=== PATIENT | female | born 1965 | race Caucasian/White ===

== ENCOUNTER 2023-12-03 13:45 | Outpatient (OUT) | payer BC, SELFPAY | END 2023-12-03 13:46 | disposition home or self-care (01) | LOC: PST 13:45 | PROVIDERS: Visit Provider Surgery | DX: Z01.818 Encounter for other preprocedural examination (principal) ==

== ENCOUNTER 2023-12-11 06:27 | Day surgery (SDC) | payer BC, SELFPAY ==
--- OUTSIDE RECORDS SUMMARY | 2023-12-11 06:31 | XMS_ITS | CCD ---
Author Organization [facility] ion Partnership [facility] Care Team Providers Care Massotherapist Name Role Phone Artem Sifuentes Primary Care Provider Jevon Yepez DO Primary Care Provider Jevon Yepez DO Primary Care Provider Jevon Yepez DO Primary Care Provider [phone] DO Jevon Yepez Jhoan Primary Care Unava Yaya Norman MD Attending Unavailab Yaya Gonzales MD Attending Unavailab johnnie Sifuentes, AZUL Braswell Referring Unavailab DO Jevon Rust Jhoan Primary Care Unava ilyoni Yepez DO [facility] Unava ilyoni Valencia MD, Yaya Leos Attending Unavailab Jevon Rust DO Primary Care Provider JEVON YEPEZ Primary Care Unavailable KAROL COLEMAN Referring Unavailable KAROL COLEMAN Referring Unavailable JEVON YEPEZ Primary Care Unavailable Jevon Yepez DO Primary Care Provider Karol Coleman NP Unavailable KAROL COLEMAN Attending Unavailable KAROL COLEMAN Attending Unavailable KAROL COLEMAN Attending Unavailable ARTEM SIFUENTES Attending Unavailable STEPHANIE DEANDRA A Attending Unavailable PETATA DEANDRA A Attending Unavailable KHALIDA BARBER Attending Unavailable PETATA DEANDRA A Attending Unavailable ARTEM SIFUENTES Attending Unavailable EDIE SILVA Attending Unavailable ARTEM SIFUENTES Referring Unavailable Allergies Allergy Classification Reported Allergen(s) Allergy Type Date of Onset Reaction(s) Facility (3 sources) Alprazolam Propensity to adverse reactions 10-30-201 7 Anxiety [facility] Work Phone: (3 sources) linezolid Drug Allergy 3 Hives [facility] (3 sources) Pollen Propensity to adverse reactions 4 [facility] (3 sources) Quinolones (Antibiotic) Drug Intolerance 7 Hives [facility] Medications Current Medications Medication Drug Class(es) Dates Sig (Normalized) Sig (Original) [id number] 200 actuat albuterol 0.09 mg/actuat metered dose inhaler (3 sources) beta2-Adrenergic Agonist Start: 02-20-2023 take 1-2 puff(s) by inhalation every four to six hours as needed for cough albuterol HFA 90 mcg/act inhaler Indications: Bronchitis with bronchospasm 1-2 puffs every 4-6 hours as needed for cough/wheezing 18 g 1 02/20/2023 Active albuterol 0.833 mg/ml / ipratropium bromide 0.167 mg/ml inhalation solution (3 sources) Anticholinergic, beta2-Adrenergic Agonist Start: 03-09-2023 ipratropium-albute rol (Duo-Neb) 0.5-2.5 mg/3 mL nebulizer solution Indications: Bronchitis with bronchospasm Take 3 mL by nebulization every 6 (six) hours 360 mL 0 03/09/2023 Active amoxicillin 875 mg / clavulanate 125 mg oral tablet (2 sources) Penicillin-class Antibacterial Start: 04-09-2023 End: 04-16-2023 take 1 tablet by mouth in the morning amoxicillin-clavul anate (Augmentin) 875-125 MG tablet Indications: Bronchitis Take 1 tablet (875 mg) by mouth in the morning and 1 tablet (875 mg) before bedtime. Do all this for 7 days. 14 tablet 0 04/09/2023 04/16/2023 Active ascorbic acid 60 mg / beta carotene 5000 unt / copper sulfate 40 mg / dl-alpha tocopheryl acetate 30 unt / sodium selenite 0.04 mg / zinc oxide 40 mg oral tablet (3 sources) Vitamin C Multiple Vitamin (Multivitamin Adult) tablet as directed Orally 0 Active fluticasone propionate 0.05 mg/actuat metered dose nasal spray (20 sources) Corticosteroid fluticasone (Flonase) 50 MCG/ACT nasal spray 1 (one) time each day at the same time. 0 Active fluticasone (HUSSAIN NASE) 50 MCG/ACT nasal spray 1 spray by Nasal route daily 0 Active 100 ml levoFLOXacin 5 mg/ml injection (17 sources) Quinolone Antimicrobial take 750 mg intravenously every twenty-four hours levofloxacin (LEVAQUIN) 500 MG/100ML SOLN Infuse 750 mg intravenously every 24 hours X 28 days 0 Active levothyroxine sodium 0.075 mg oral tablet (20 sources) l-Thyroxine take 1 tablet by mouth in the morning levothyroxine (Synthroid, Levoxyl) 75 MCG tablet Take 1 tablet by mouth in the morning. 0 Active linezolid 600 mg oral tablet (17 sources) Oxazolidinone Antibacterial take 1 tablet by mouth twice daily linezolid (ZYVOX) 600 MG tablet Take 600 mg by mouth 2 times daily X 28 days 0 Active loratadine 10 mg oral tablet (20 sources) take 1 tablet by mouth in the morning loratadine (Claritin) 10 MG tablet Take 10 mg by mouth in the morning. 0 Active methylPREDNISolone 4 mg oral tablet (2 sources) Corticosteroid Star t: 03-29 24 methylPREDNISolone (Medrol) 4 MG tablet Indications: Bronchitis 1 MEDROL DOSE TWAN 1 tablet 0 04/09/2023 Active Start: 04-09-2023 methylPREDNISo lone (Medrol) 4 MG tablet Indications: Bronchitis 1 MEDROL DOSE TWAN 1 tablet 0 04/09/2023 Active rivaroxaban 15 mg oral tablet (17 sources) Factor Xa Inhibitor take 1 tablet by mouth twice daily rivaroxaban (XARELTO) 15 MG TABS tablet Take 15 mg by mouth 2 times daily 0 Active sertraline 50 mg oral tablet (3 sources) Serotonin Reuptake Inhibitor Start: 3 take 1 tablet by mouth in the morning sertraline (Zoloft) 50 MG tablet Indications: Anxiety Take 1 tablet (50 mg) by mouth in the morning. 100 tablet 3 10/27/2022 Active simvastatin 20 mg oral tablet (3 sources) HMG-CoA Reductase Inhibitor Start: 3 simvastatin (Zocor) 20 MG tablet Indications: Mixed hyperlipidemia (CMS/HCC) TAKE 1 TABLET DAILY IN THE EVENING 100 tablet 3 10/23/2022 Active Completed/Discontinued Medications Medication Drug Class(es) Dates Sig (Normalized) Sig (Original) iopamidol (ISOVUE-370) 76 % injection 75 mL (1 source) Start: 12-22-2021 End: 12-22-2021 iopamidol (ISOVUE-370) 76 % injection 75 mL technetium sestamibi (CARDIOLITE) injection 30 millicurie (2 sources) Start: 09-07-2020 End: 09-07-2020 technetium sestamibi (CARDIOLITE) injection 30 millicurie Start: 09-06-2020 End: 09-06-2020 technetium sestamibi (CARDIO LITE) injection 30 millicurie Problems Active Problems Problem Classification Problem Date Documented Da te Episodic/Chronic Acute bronchitis (3 sources) Acute bronchitis, unspecified; Translations: [Acute bronchitis, unspecified] Onset: 03-09-2023 Episodic Allergic reactions (3 sources) Flexural atopic dermatitis; Translations: [Other atopic dermatitis] Onset: 10-27-2022 10-27-2022 Chronic Anxiety disorders (3 sources) Mixed anxiety and depressive disorder; Translations: [Other specified anxiety disorders] Onset: 10-27-2022 10-27-2022 Chronic Cardiac dysrhythmias (3 sources) Palpitations; Translations: [Palpitations] Episodic Chronic obstructive pulmonary disease and bronchiectasis (2 sources) Bronchitis; Translations: [Bronchitis, not specified as acute or chronic] 04-09-2023 Episodic Disorders of lipid metabolism (6 sources) Dyslipidemia; Translations: [Hyperlipidemia, unspecified] Onset: 10-27-2022 10-27-2022 Chronic Melanomas of skin (6 sources) Malignant melanoma of skin of trunk; Translations: [Malignant melanoma of other part of trunk] Onset: 08-15-2013 10-27-2022 Chronic Nonspecific chest pain (4 sources) Chest pain; Translations: [Chest pain, unspecified] Episodic Nutritional deficiencies (3 sources) Vitamin D deficiency; Translations: [Vitamin D deficiency, unspecified] Onset: 10-27-2022 10-27-2022 Chronic Osteoarthritis (3 sources) Primary osteoarthritis, right shoulder; Translations: [Arthropathy, unspecified, shoulder region] Onset: 10-27-2022 10-27-2022 Chronic Other ear and sense organ disorders (3 sources) Decreased hearing ; Translations: [Unspecified hearing loss, bilateral] Onset: 10-27-2022 10-27-2022 Chronic Other ear and sense organ disorders (3 sources) Otitis externa; Translations: [Unspecified otitis externa, bilateral] Onset: 10-27-2022 10-27-2022 Chronic Other ear and sense organ disorders (3 sources) Malignant otitis externa; Translations: [Malignant otitis externa, unspecified ear] Onset: 10-27-2022 10-27-2022 Chronic Other infections; including parasitic (1 source) Post-viral disorder; Translations: [[id number] condition] Chronic Other liver diseases (3 sources) Steatosis of liver; Translations: [Fatty (change of) liver, not elsewhere classified] Onset: 10-27-2022 10-27-2022 Chronic Other lower respiratory disease (4 sources) Dyspnea on exertion; Translations: [Dyspnea, unspecified] Episodic Other lower respiratory disease (1 source) Dyspnea; Translations: [Shortness of breath] Episodic Other nervous system disorders (3 sources) Chronic pain; Translations: [Other chronic pain] Onset: 10-27-2022 10-27-2022 Chronic Other non-traumatic joint disorders (3 sources) Loose body in joint of right shoulder region; Translations: [Loose body in right shoulder] Onset: 10-27-2022 10-27-2022 Chronic Other upper respiratory disease (3 sources) Allergic disposition; Translations: [Other allergic rhinitis] Onset: 10-27-2022 10-27-2022 Chronic Other upper respiratory infections (3 sources) Chronic frontal sinusitis; Translations: [Chronic frontal sinusitis] Onset: 10-27-2022 10-27-2022 Chronic Otitis media and related conditions (20 sources) Chronic mastoiditis; Translations: [Chronic mastoiditis, right ear] Onset: 11-29-2016 11-29-2016 Chronic Thyroid disorders (9 sources) Acquired hypothyroidism; Translations: [Hypothyroidism, unspecified] Onset: 05-07-2012 10-27-2022 Chronic Unclassified (1 source) Patient encounter status; Translations: [Breast cancer screening] Past or Other Problems Problem Classification Problem Date Documented Da te Episodic/Chronic Bacterial infection; unspecified site (6 sources) Methicillin resistant Staphylococcus aureus infection; Translations: [Methicillin resistant Staphylococcus aureus infection, unspecified site] Onset: 10-27-2022 10-27-2022 Episodic Benign neoplasm of uterus (3 sources) Uterine leiomyoma; Translations: [Leiomyoma of uterus, unspecified] Onset: 10-27-2022 10-27-2022 Episodic Complications of surgical procedures or medical care (3 sources) Dehiscence of surgical wound; Translations: [Disruption of external operation (surgical) wound, not elsewhere classified, initial encounter] Onset: 08-15-2013 10-27-2022 Episodic Immunizations and screening for infectious disease (3 sources) Culture positive for methicillin resistant Staphylococcus aureus; Translations: [Carrier or suspected carrier of Methicillin resistant Staphylococcus aureus] Onset: 10-27-2022 10-27-2022 Episodic Other and unspecified benign neoplasm (3 sources) Benign neoplasm of thyroid gland; Translations: [Benign neoplasm of thyroid gland] Onset: 10-27-2022 10-27-2022 Episodic Other and unspecified benign neoplasm (3 sources) Tubular adenoma of colon; Translations: [Benign neoplasm of colon, unspecified] Onset: 10-27-2022 10-27-2022 Episodic Other connective tissue disease (3 sources) Impingement syndrome of right shoulder region; Translations: [Impingement syndrome of right shoulder] Onset: 10-27-2022 10-27-2022 Episodic Other ear and sense organ disorders (3 sources) Bilateral tinnitus; Translations: [Tinnitus, bilateral] Onset: 10-27-2022 10-27-2022 Episodic Other gastrointestinal disorders (3 sources) Esophageal dysphagia; Translations: [Other dysphagia] Onset: 10-27-2022 10-27-2022 Episodic Other screening for suspected conditions (not mental disorders or infectious disease) (10 sources) Mammography abnormal; Translations: [Other abnormal and inconclusive findings on diagnostic imaging of breast] Onset: 10-27-2022 Episodic Other upper respiratory disease (3 sources) Hoarse; Translations: [Dysphonia] Onset: 10-27-2022 10-27-2022 Episodic Phlebitis; thrombophlebitis and thromboembolism (9 sources) Acute deep venous thrombosis of right axillary vein; Translations: [Acute embolism and thrombosis of right axillary vein] Onset: 12-05-2016 10-27-2022 Episodic Viral infection (3 sources) Disease caused by 2019-nCoV; Translations: [COVID-19] Onset: 07-26-2022 07-26-2022 Episodic Results Test Name Value Interpretation Reference Range Facility BI MAMMOGRAM SCREENING TOMPOWER SILVERIO BILATERALon 12-05-2023 BI MAMMOGRAM SCREENING TOMOSYNTHESIS BILATERAL This is a summary report. The complete report is available in the patient's medical record. If you cannot access the medical record, please contact the sending organization for a detailed fax or copy. Examination: BI MAMMOGRAM SCREENING TOMOSYNTHESIS BILATERAL Clinical History: screen Technique: Screening digital mammography study of both breasts was performed with 2-D and 3-D tomosynthesis imaging. Study was compared to the screening mammogram study of the breasts dated 08/24/2021 as well as diagnostic mammogram study of the right breast dated 09/26/2021. Findings: There is no evidence of interval dominant spiculated mass, grouped microcalcifications, or skin thickening which would be suggestive of malignancy. Architectural distortion on the right appears similar to the 08/24/2021 study likely related to fibrosis possibly postprocedural in nature, correlate with history. Scattered benign-appearing calcifications are seen on the left, a few benign-appearing calcifications are seen on the right. Axillary lymph nodes are noted bilaterally. IMPRESSION: Impression: No specific evidence of malignancy seen in either breast. Breast Density: The breasts are heterogeneously dense, which may obscure small masses BiRads: BIRADS 2 - Benign Recommended follow-up: Routine Screening Mamm ELECTRONICALLY SIGNED BY: Jamar Ott M.D. Normal Not Available XR CHEST (2 VW)on 03-09-2023 XR CHEST (2 VW) EXAMINATION: TWO XRAY VIEWS OF THE CHEST 03/09/2023 2:28 pm COMPARISON: August 23, 2020 HISTORY: ORDERING SYSTEM PROVIDED HISTORY: Bronchitis with bronchospasm FINDINGS: The lungs are without acute focal process. There is no effusion or pneumothorax. The cardiomediastinal silhouette is without acute process. The osseous structures are without acute process. IMPRESSION: No acute process. Interpreted by: Allison Eugene MD Signed by: Allison Eugene MD 03/09/23 Final result Normal [facility] I-4-IR-[facility]2022 [facility]dL Normal 100 - 190 [facility] Comment on above: Result Comment: Test Performed by: [facility] [address] [place] [address] Manager Express: Daniel Balderas M.D. Ph.D.; CLIA# [id number] Performed By: #### C [id number] #### [facility] [address] [place] [address], [place] [address] AMA M2-[facility] 02-22-2022 AMA Ab Screen-[place] <0.1 Normal <0.1 (Negative) [facility] Comment on above: Result Comment: Test Performed by: [facility] [address] [place] [id number] Manager Express: Daniel Balderas M.D. Ph.D.; CLIA# [id number] Performed By: #### M itochondrial Antibody, M2-[place] #### [facility] [address] [place] [id number] ANTHONY Vds-2-Ijefps 02-22-2022 ANTHONY Cytoplasmic Pattern-[place] Not Reported Normal [facility] Comment on above: Performed By: #### C [id number] #### [address] [address] ANTHONY Lab Comment-[place] Not Reported Normal [facility] Comment on above: Performed By: #### C [id number] #### [address] [place] [address] ANTHONY Pattern (2)-[place] Not Reported Normal [facility] Comment on above: Performed By: #### C [id number] #### [address] [address] ANTHONY Pattern-[place] Not Reported Normal [facility] Comment on above: Performed By: #### C [id number] #### [address] [address] ANTHONY Titer (2)-[place] Not Reported Normal [facility] Comment on above: Performed By: #### C [id number] #### [address] [address] ANTHONY Titer-[place] Not Reported Normal [facility] Comment on above: Performed By: #### Андрей [id number] #### [address] [address] HEp-2 ANTHONY-[place] SEE BELOW Normal <1:80 (Negative) [facility] Comment on above: Result Comment: RESU LT: <1:80 (Negative) ADDITIONAL INFORMATION Method: Immunofluorescence using HEp-2 cellular substrate. Test Performed by: [facility] [place] [address] Manager [employer]: Daniel Balderas M.D. Ph.D.; CLIA# [id number] Performed By: #### Андрей [id number] #### [address] [address] Cerulo Lvl-[facility] 02-22-2022 Ceruloplasmin-[place] 28.0 mg/dL Normal 20.0 - 51.0 [facility] Comment on above: Result Comment: Test Performed by: [facility] [address] [place] [address] Manager Express: Daniel Balderas M.D. Ph.D.; CLIA# [id number] Performed By: #### Андрей [id number] #### [address] [address] SM Ab-[facility] 02-22-2022 SMA Screen-[place] Negative Normal Negative [facility] Comment on above: Result Comment: Nega tive: No further testing will be performed ADDITIONAL INFORMATION This test was developed and its performance characteristics determined by [facility] in a manner consistent with CLIA requirements. This test has not been cleared or approved by the U.S. Food and Drug Administration. Test Performed by: [facility] [place] [address] Manager [employer]: Daniel Balderas M.D. Ph.D.; CLIA# [id number] Performed By: #### S darvin Muscle Antibody-[place] #### [facility] [address] [place] [address] TTG IgA-[facility] 02-22-2022 TTG IgA-[place] <1.2 Normal <4.0 (Negative) [facility] Comment on above: Result Comment: Test Performed by: [facility] [address] [place] [address] Manager [employer]: Daniel Balderas M.D. Ph.D.; CLIA# [id number] Performed By: #### T [facility] #### [place] [address] US Liver + Elastography US Liver + Elastography EXAM: ULTRASOUND LIVER ELASTOGRAPHY HISTORY: Cirrhosis, liver TECHNIQUE: Transabdominal ultrasound was performed of the right upper quadrant. Ultrasound elastography of the liver was also performed as per departmental protocol. COMPARISON: None FINDINGS: Gallbladder is surgically absent. The proximal common bile duct measures 3 mm in diameter. There is no intrahepatic bile duct dilatation. Liver measures 18.1 cm, and with mildly increased echogenicity throughout. Dedicated elastography protocol for liver stiffness demonstrates liver EQI average of 5.68 kPA with median of 5.70 kPA. The visualized head and body of the pancreas are normal. Portions of the pancreas are obscured by overlying bowel gas. The right kidney is without hydronephrosis. There is no free fluid in the right upper quadrant. IMPRESSION: 1. Mild hepatomegaly with fatty infiltration of the liver. Liver stiffness evaluated by elastography and demonstrates liver EQI average of 5.68 kPA, suggestive of periportal fibrotic expansion, Metavir F1. In the absence of other known clinical signs, need to rule out compensated advanced chronic liver disease (cACLD). See reference below. 2. Cholecystectomy with normal caliber proximal common bile duct at 3 mm. 3. Right kidney without hydronephrosis. Remarks: Liver stiffness evaluation: A measured stiffness of < or = 5.0 kPa : High probability of being normal. No fibrosis, Metavir F0. < 7 kPa : In the absence of other known clinical signs (e.g., jaundice, ascites, etc.), need to rule out compensated advanced chronic liver disease (cACLD). Periportal fibrotic expansion, Metavir F1. 7- 9.5 kPa : Suggestive of compensated advanced chronic liver disease (cACLD) and further tests needed for confirmation. Rare periportal septae or bridges, Metavir F2. 9.5 - 12.5 kPa : Consistent with compensated advanced chronic liver disease (cACLD). Numerous portal-central septae or bridges, Metavir F3. 12.5 - 17 kPa : Consistent with compensated advanced chronic liver disease (cACLD). Cirrhosis, Metavir F4. > 17 kPa : Consistent with compensated advanced chronic liver disease (cACLD), cirrhosis, Metavir F4, and suggestive of clinically significant portal hypertension (CSPH). Final Dictated by: Alaina Chew MD Dictated DT/TM: 02/22/2022 10:04 am Signed by: Alaina Chew MD Signed (Electronic Signature): 02/22/2022 10:05 am (If Report Is Signed, Electronically Signed in Other Vendor System) Normal [facility] Vitamin D 25-Hydroxy Totalon 02-22-2022 Vitamin D 25-Hydroxy Total 25 ng/mL Low 30-100 [facility] Comment on above: Result Comment: Maye min D 25-Hydroxy Total Reference Range: Deficient: < 20 Insufficient: 20 to < 30 Sufficient: 30 - 100 Upper Safety Limit: > 100 Performed By: #### C [id number] #### [place] [address] .eGFRon 02-21-2022 GFR/1.73 sq M.predicted MDRD (S/P/Bld) [Vol rate/Area] mL/min/{1.73_m2} Normal >=60 [facility] Comment on above: Result Comment: [facility] have implemented the eGFR calculation approach that does not have a coefficient for race and that conforms to the NKF-ASN Task Force Recommendations. Stages of Chronic Kidney Disease GFR Stage 3a Mild to moderate loss of kidney function 59 to 45 Stage 3b Moderate to severe loss of kidney function 44 to 33 Stage 4 Severe loss of kidney function 29 to 15 Stage 5 Kidney failure Less than 15 GFR calculated using the CKD-Epi Creatinine Equation (2020): eGFR = 142 X min(SCr/?, 1)? X max(SCr /?, 1)-1.200 X 0.9938Age X 1.012 [if female] Abbreviations/Units: eGFR (estimated glomerular filtration rate) = mL/min/1.73 m2 SCr (standardized serum creatinine) = mg/dL ? = 0.7 (females) or 0.9 (males) ? = -0.241 (females) or -0.302 (males) min = indicates the minimum of SCr/? or 1 max = indicates the maximum of SCr/? or 1 Age = years Performed By: #### C [id number] #### [address] [address] AFP Tumor Marker,Serumon AFP Tumor Marker, Serum 2.7 ng/mL Normal <=8.3 [facility] Comment on above: Result Comment: Refe rence values are for non- subjects only; production of alpha-fetoprotein elevates values in women. In this Kathi Krystian assay AFP concentrations are <8.4 ng/mL for 99% of a normal population consisting of non- healthy individuals, without known liver disease, hepatocellular carcinoma, or germ-cell tumors. The persistence of alpha-fetoprotein , an uncommon hereditary trait may cause elevations of AFP above the reference interval. In some immunoassays, the presence of unusually high concentrations of analyte may result in a high-dose hook effect. This may result in a lower or even normal measured analyte concentration. If the reported result is inconsistent with the clinical presentation, the laboratory should be alerted for troubleshooting. For diagnostic purposes, these immunoassay results should always be assessed in conjunction with the patient?s medical history, clinical examination and other findings. The testing method is an immunoenzymatic assay manufactured by [employer]. and is tested on the [employer] DxI 600. Values obtained with different assay methods or kits may be different and cannot be used interchangeably. Test results cannot be interpreted as absolute evidence of the presence or absence of malignant disease. Alpha-Fetoprotein values are not interpretable in females for the investigation of malignant disease. Performed By: #### C [id number] #### [address] [address] CBC w/ Diffon 02-21-2022 Erythrocyte distribution width (RBC) [Ratio] 13.7 % Normal 11.6-14.8 [facility] Comment on above: Performed By: #### C [id number] #### [address] [address] Hematocrit (Bld) [Volume fraction] 41.6 % Normal 36.0-46.0 [facility] Comment on above: Performed By: #### C [id number] #### [address] [address] Hemoglobin (Bld) [Mass/Vol] 14.0 g/dL Normal 12.0-16.0 [facility] Comment on above: Performed By: #### C [id number] #### [address] [address] MCH (RBC) [Entitic mass] 29.7 pg Normal 27.0-35.0 [facility] Comment on above: Performed By: #### C [id number] #### [address] [address] MCHC 33.7 % Normal 31.0-37.0 [facility] Comment on above: Performed By: #### C [id number] #### [address] [address] MCV (RBC) [Entitic vol] 88.0 fL Normal 80.0-100.0 [facility] Comment on above: Performed By: #### C [id number] #### [address] [address] Platelet 318 x10*3/mcL Normal 150-350 [facility] Comment on above: Performed By: #### C [id number] #### [address] [address] [address] Platelet mean volume (Bld) [Entitic vol] 7.8 fL Normal 6.7-10.6 [facility] Comment on above: Performed By: #### C [id number] #### [facility] [address] [place] [address] RBC 4.73 x10*6/mcL Normal 3.80-5.20 [facility] Comment on above: Performed By: #### C [id number] #### [facility] [address] [place] [address] WBC 5.7 x10*3/mcL Normal 4.5-11.0 [facility] Comment on above: Performed By: #### C [id number] #### [address] [address] CMPon 02-21-2022 Albumin [Mass/Vol] 4.0 g/dL Normal 3.2-4.9 [facility] Comment on above: Performed By: #### T IBC #### [address] [address] Albumin/Globulin [Mass ratio] 1.2 {ratio} Normal 1.1-2.2 [facility] Comment on above: Performed By: #### T IBC #### [address] [address] Alk Phos 62 IU/L Normal 32-91 [facility] Comment on above: Performed By: #### T IBC #### [address] [address] ALT [Catalytic activity/Vol] 32 U/L Normal 14-54 [facility] Comment on above: Performed By: #### T IBC #### [address] [place] [address] Anion gap [Moles/Vol] 12 mmol/L Normal 7-17 [facility] Comment on above: Performed By: #### T IBC #### [address] [address] AST [Catalytic activity/Vol] 27 U/L Normal 15-41 [facility] Comment on above: Performed By: #### T IBC #### [address] [address] Bili Total 0.4 mg/dL Normal 0.3-1.2 [facility] Comment on above: Performed By: #### T IBC #### [address] [address] Calcium [Mass/Vol] 8.7 mg/dL Normal 8.5-10.3 [facility] Comment on above: Performed By: #### T IBC #### [address] [address] Chloride [Moles/Vol] 103 mmol/L Normal 98-110 [facility] Comment on above: Performed By: #### T IBC #### [address] [address] CO2 [Moles/Vol] 27 mmol/L Normal 22-32 [facility] Comment on above: Performed By: #### T IBC #### [address] [address] Creatinine [Mass/Vol] 0.97 mg/dL Normal 0.44-1.03 [facility] Comment on above: Performed By: #### T IBC #### [address] [address] Glucose [Mass/Vol] 95 mg/dL Normal 70-99 [facility] Comment on above: Performed By: #### T IBC #### [address] [address] Potassium [Moles/Vol] 4.0 mmol/L Normal 3.4-4.8 [facility] Comment on above: Performed By: #### T IBC #### [address] [address] Protein [Mass/Vol] 7.3 g/dL Normal 6.5-8.1 [facility] Comment on above: Performed By: #### T IBC #### [address] [address] Sodium [Moles/Vol] 138 mmol/L Normal 133-142 [facility] Comment on above: Performed By: #### T IBC #### [address] [address] Urea nitrogen [Mass/Vol] 19 mg/dL Normal 8-26 [facility] Comment on above: Performed By: #### T IBC #### [address] [address] Urea nitrogen/Creatinine [Mass ratio] 19.6 mg/mg Normal 10.0-20.0 [facility] Comment on above: Performed By: #### T IBC #### [address] [address] Diff Autoon 02-21-2022 Baso Absolute 0.0 x10*3/mcL Normal 0.0-0.2 [facility] Comment on above: Performed By: #### . Automated Diff #### [address] [address] Basophils/100 WBC (Bld) 0.7 % Normal 0.0-1.5 [facility] Comment on above: Performed By: #### . Automated Diff #### [address] [address] Eos Absolute 0.2 x10*3/mcL Normal 0.0-0.4 [facility] Comment on above: Performed By: #### . Automated Diff #### [address] [address] Eosinophils/100 WBC (Bld) 4.2 % Normal 0.0-5.4 [facility] Comment on above: Performed By: #### . Automated Diff #### [address] [address] Lymph Absolute 1.8 x10*3/mcL Normal 1.0-4.8 [facility] Comment on above: Performed By: #### . Automated Diff #### [address] [address] Lymphocytes/100 WBC (Bld) 32.4 % Normal 27.2-40.8 [facility] Comment on above: Performed By: #### . Automated Diff #### [address] [address] [place] Absolute 0.3 x10*3/mcL Normal 0.1-1.1 [facility] Comment on above: Performed By: #### . Automated Diff #### [address] [address] Monocytes/100 WBC (Bld) 5.7 % Normal 3.7-11.9 [facility] Comment on above: Performed By: #### . Automated Diff #### [address] [address] Neutro Absolute 3.2 x10*3/mcL Normal 1.8-7.7 [facility] Comment on above: Performed By: #### . Automated Diff #### [address] [address] Neutro Auto 57.0 % Normal 47.2-70.8 [facility] Comment on above: Performed By: #### . Automated Diff #### [address] [address] Ferritinon 02-21-2022 Ferritin Lvl 41.5 ng/mL Normal 11.0-306.8 [facility] Comment on above: Performed By: #### F ERR #### [address] [address] HAV Tot Abon 02-21-2022 Hep A Total Ab 1.59 Normal [facility] Comment on above: Performed By: #### T IBC #### [address] [address] Hep A Total Ab Interp Negative Normal Negative [facility] Comment on above: Result Comment: Samp le is negative for anti-HAV. Indicates that the individual has not been infected and is presumed not to be immune to HAV infection. Performed By: #### T IBC #### [address] [address] Hep Bc Totl Abon 02-21-2022 Hep B Core Total Ab 3.22 Normal [facility] Comment on above: Performed By: #### T IBC #### [address] [address] Hep B Core Total Ab Interp Negative Normal Negative [facility] Comment on above: Result Comment: A ne gative test result does not exclude the possibility of exposure to hepatitis B virus. Levels of anti-HBc may be undetectable both in early infection and late after infection. Results obtained with the VITROS Anti-HBc test may not be used interchangeably with values obtained with different manufacturers? test methods. The magnitude of a VITROS Anti-HBc test result cannot be correlated to an endpoint titer. Performed By: #### T IBC #### [address] [address] Hep C Ab w/reflex HCV RNA Qn t, PCRon 02-21-2022 Hep C IgG Interp Negative Normal Negative [facility] Comment on above: Performed By: #### H CV #### [address] [address] HepB Profileon 02-21-2022 Hep B Core IgM 0.04 Normal [facility] Comment on above: Performed By: #### C [id number] #### [address] [address] Hep B Core IgM Interp Negative Normal Negative [facility] Comment on above: Performed By: #### C [id number] #### [address] [address] Hep B Surface Antibody Interp Positive Normal [facility] Comment on above: Result Comment: Sarah ent is considered to be immune to infection with HBV. Performed By: #### C [id number] #### [address] [address] Hep Bs Ab 104.0 mIU/mL Normal [facility] Comment on above: Performed By: #### C [id number] #### [address] [address] Hep Bs Ag Interp Negative Normal Negative [facility] Comment on above: Performed By: #### C [id number] #### [address] [address] Hgb A1con 02-21-2022 Glucose [Mass/Vol] 123 mg/dL High 68-114 [facility] Comment on above: Result Comment: Math ematical Calc approx. The mean gluc equivalency of A1c Performed By: #### C [id number] #### [address] [address] Hgb A1c 5.9 % A1c High 4.0-5.6 [facility] Comment on above: Result Comment: Refe rence Range: 4.0 - 5.6 % Normal 5.7 - 6.4 % Pre-Diabetes > 6.5 % Diabetes Performed By: #### C [id number] #### [address] [address] Ig GAMon 02-21-2022 IgA Level 149 mg/dL Normal 66-436 [facility] Comment on above: Performed By: #### G AM #### [address] [address] Performed By: #### I GA #### [address] [address] IgG Level 965 mg/dL Normal 791-1643 [facility] Comment on above: Performed By: #### G AM #### [address] [address] IgM Level 74 mg/dL Normal 43-279 [facility] Comment on above: Performed By: #### G AM #### [address] [address] PTon 02-21-2022 INR Coag (PPP) [Relative time] 0.9 {INR} Normal <=3.5 [facility] Comment on above: Result Comment: INR has no normal range. INR Therapeutic range is: 2.0-3.0 (AF, CVA, TIAs, DVT prophylaxis, acute DVT) 2.5-3.5 (Mech heart valves, recurrent thrombosis/emboli) Performed By: #### T IBC #### [address] [address] PT Coag (PPP) [Time] 9.7 s Normal 8.9-11.8 [facility] Comment on above: Performed By: #### T IBC #### [address] [address] TIBCon 02-21-2022 Iron [Mass/Vol] 94 ug/dL Normal 28-170 [facility] Comment on above: Performed By: #### T IBC #### [address] [address] Iron Sat 24.0 % Normal >=16.0 [facility] Comment on above: Performed By: #### T IBC #### [address] [address] TIBC 391 mcg/dL Normal 261-478 [facility] Comment on above: Performed By: #### T IBC #### [address] [address] Transferrin [Mass/Vol] 279 mg/dL Normal 192-382 [facility] Comment on above: Performed By: #### T IBC #### [address] [address] TSHon 02-21-2022 TSH Qn 1.41 m[IU]/L Normal 0.45-5.33 [facility] Comment on above: Result Comment: Refe rence Ranges for individuals from to 18 years of age were obtained from The Latricia Lyn Handbook (20 ed) published by [facility]. Reference Ranges for Females: Females, 1st Trimester 0.05 ? 3.7 uIU/mL Females, 2nd Trimester 0.31 ? 4.35 uIU/mL Females, 3rd Trimester 0.41 ? 5.18 uIU/mL Performed By: #### C [id number] #### [address] [address] Gastroenterology Office/Clin ic Noteon 02-10-2022 Gastroenterology Office/Clinic Note Chief Complaint Fatty liver History of Present Illness 56-year-old woman referred for evaluation and management of fatty liver. Outside records reviewed. CT of the chest with contrast done on December 22, 2021 for shortness of breath showed severe fatty infiltration of the liver. Liver enzymes checked on December 22, 2021 showed ALT 44, AST 32, total bilirubin 0.4. Clinically denied any hepatic decompensation. Denied alcohol use disorder or illicit drug use. Patient is adopted so she is not sure of her biological family history. No jaundice, abdominal pain, nausea, vomiting or overt GI bleeding. History of supplement use for approximately 1 month?stopped. Review of Systems 10 point review of systems negative except as mentioned in HPI. Physical Exam General: Alert and oriented, well nourished, no acute distress Eye: tracks well, anicteric sclera HENT: Normocephalic, external ear normal, no discharge, moist oral mucosa Neck: Supple, non-tender, trachea midline Lungs: symmetrical expansion, nonlabored respirations Heart: regular rate, distal pulses intact Abdomen: soft, non-tender. Nondistended. Musculoskeletal: no deformity, normal ambulation, no swelling Skin: clean, dry, intact, no jaundice Neurologic: A&Ox3, no focal deficits Psychiatric: Cooperative, appropriate mood and affect Additional Vitals No qualifying data available. Assessment/Plan 1. Fatty liver 2. Abnormal liver enzymes 3. Hyperlipidemia Etiology likely NAFLD. Discussed natural history, pathophysiology, risk factors, complications and management options of fatty liver disease in detail. We will do a comprehensive work-up to rule out secondary causes of fatty liver. Check elastography to assess the burden of fibrosis. I will also get updated labs to assess noninvasive assessment for advanced fibrosis-FIB4 and NAFLD fibrosis score. Low threshold to proceed for a liver biopsy for definitive diagnosis-we will make that determination after completion of above work-up. Confirm immunity against hepatitis A and B-vaccinate if negative. Can be done with PCP over the health department. Recommend low-fat, high-protein diet and regular exercise with a goal of weight loss of 10% over 6 months. Avoid heavy alcohol use, herbal/hormonal supplement use, illicit drug use. Close follow-up with PCP for appropriate screening and optimization and management of metabolic risk factors including diabetes, hypertension, hyperlipidemia, thyroid issues. GI clinic follow-up in 8 weeks Medical Decision Making Chronic conditions NOT treated during this visit that affected my overall medical decision making: No Treatment plans discussed but not opted for at this time: No Prescribed medication that requires intensive monitoring for toxicity: No I have reviewed the patient?s medication list for medication interactions/contrain dications and/or for upcoming procedures: Yes Time Spent with the Patient I have personally spent 60 minutes on this date, directly related to today's patient visit, including pre and post visit work, for this date of service. Time listed does not include time spent on separately billable services. Problem List/Past Medical History Ongoing Abnormal liver enzymes Cataract Fatty liver Hypercholesterolemia - High cholesterol Hyperlipidemia Hypothyroidism Malignant melanoma MRSA - Methicillin-resistant staphylococcus aureus Historical No qualifying data Procedure/Surgical History PARTIAL REMOVAL OF THYROID (03/29/2014) Wide excision of skin lesion (06/27/2015) Anastomosis of gall bladder (03/29/2016) Medications levothyroxine, 75.0 mcg/mg, Oral, Daily sertraline, 50 mg/min, Oral, Daily sertraline, 25 mg/min, Oral, Daily simvastatin, 20 mg/min, Oral, Daily triamcinolone, 2 sprays, Nasal, Daily ZyrTEC, 10 mg/min, Oral, Daily Allergies No active allergies Immunizations Vaccine Date Status measles/mumps/rubella virus vaccine 02/07/2022 Given Comments : Original Free text Vaccine : MMR/ measles, mumps, and rubella virus vaccine SARS-CoV-2 (COVID-19) mRNA-1273 vaccine 02/13/2021 Given Comments : Original Free text Vaccine : SARS-CoV-2 (COVID-19) mRNA-1273 vaccine / Moderna SARS-CoV-2 (COVID-19) mRNA-1273 vaccine 06/07/2020 Given Comments : Original Free text Vaccine : SARS-CoV-2 (COVID-19) mRNA-1273 vaccine / Moderna SARS-CoV-2 (COVID-19) mRNA-1273 vaccine 05/10/2020 Given Comments : Original Free text Vaccine : SARS-CoV-2 (COVID-19) mRNA-1273 vaccine / Moderna Electronically signed by Yaya Valencia MD 02/10/22 08:54 EST We will check ultrasound of the liver with elastography to assess hepatic morphology and burden of fibrosis. Electronically signed by Yaya Valencia MD 02/10/22 08:55 EST Normal [facility] CBCon 12-22-2021 Hematocrit (Bld) [Volume fraction] 45.9 % 36.3 - 47.1 % [facility] Hemoglobin (Bld) [Mass/Vol] 15.0 g/dL 11.9 - 15.1 g/dL [facility] MCH (RBC) [Entitic mass] 29.7 pg 25.2 - 33.5 pg [facility] MCHC (RBC) [Mass/Vol] 32.7 g/dL 28.4 - 34.8 g/dL [facility] MCV (RBC) [Entitic vol] 90.9 fL 82.6 - 102.9 fL [facility] NRBC Automated 0.0 0.0 per 100 WBC [facility] Platelet distribution width (Bld) [Ratio] 12.8 % 11.8 - 14.4 % [facility] Platelet mean volume (Bld) [Entitic vol] 9.3 fL 8.1 - 13.5 fL [facility] Platelets (Bld) [#/Vol] 271 10*3/uL [facility] RBC (Bld) [#/Vol] 5.05 10*6/uL 3.95 - 5.1 1 m/uL [facility] WBC (Bld) [#/Vol] 10.1 10*3/uL [facility] CT CHEST W CONTRASTon 2021 No acute pulmonary parenchymal abnormality. Severe fatty infiltration of the liver. [facility] CONSOLIDATED EXAMINATION: CT OF THE CHEST WITH CONTRAST 12/22/2021 4:42 pm TECHNIQUE: CT of the chest was performed with the administration of intravenous contrast. Multiplanar reformatted images are provided for review. Automated exposure control, iterative reconstruction, and/or weight based adjustment of the mA/kV was utilized to reduce the radiation dose to as low as reasonably achievable. COMPARISON: None. HISTORY: ORDERING SYSTEM PROVIDED HISTORY: Shortness of breath TECHNOLOGIST PROVIDED HISTORY: STAT Creatinine as needed:->No FINDINGS: CT chest: Lines and tubes: None. Lungs and Airways and Pleura: Central airways are patent. No lung consolidation. No pleural effusion. No pneumothorax. Lymph nodes: No pathologically enlarged mediastinal, hilar, lower cervical, or chest wall lymph nodes. Cardiovascular and Mediastinum: No acute aortic pathology. Cardiac chamber sizes appear to measure within normal limits on this non ECG gated study. No pericardial effusion. The thyroid gland is unremarkable. The esophagus is unremarkable. Bones/Soft tissues: No fracture. No definite suspicious lytic or blastic foci. Visualized upper abdomen: Severe fatty infiltration of the liver. [facility] Muriel Aguilar MD - 12/22/2021 EXAMINATION: CT OF THE CHEST WITH CONTRAST 12/22/2021 4:42 pm TECHNIQUE: CT of the chest was performed with the administration of intravenous contrast. Multiplanar reformatted images are provided for review. Automated exposure control, iterative reconstruction, and/or weight based adjustment of the mA/kV was utilized to reduce the radiation dose to as low as reasonably achievable. COMPARISON: None. HISTORY: ORDERING SYSTEM PROVIDED HISTORY: Shortness of breath TECHNOLOGIST PROVIDED HISTORY: STAT Creatinine as needed:->No FINDINGS: CT chest: Lines and tubes: None. Lungs and Airways and Pleura: Central airways are patent. No lung consolidation. No pleural effusion. No pneumothorax. Lymph nodes: No pathologically enlarged mediastinal, hilar, lower cervical, or chest wall lymph nodes. Cardiovascular and Mediastinum: No acute aortic pathology. Cardiac chamber sizes appear to measure within normal limits on this non ECG gated study. No pericardial effusion. The thyroid gland is unremarkable. The esophagus is unremarkable. Bones/Soft tissues: No fracture. No definite suspicious lytic or blastic foci. Visualized upper abdomen: Severe fatty infiltration of the liver. IMPRESSION: No acute pulmonary parenchymal abnormality. Severe fatty infiltration of the liver. Mtime Phone: Radiology Study observation (narrative) Mtime Phone: CT CHEST W CONTRASTOrdered B y: Muriel Prescott on 12-22-2021 [facility] Work Phone: Comprehensive Metabolic Pane omar 12-22-2021 Albumin [Mass/Vol] 4.3 g/dL 3.5 - 5.2 g/dL [facility] Albumin/Globulin [Mass ratio] 1.3 {ratio} 1.0 - 2.5 [facility] ALP (Bld) [Catalytic activity/Vol] 74 U/L 35 - 104 U/L [facility] ALT [Catalytic activity/Vol] 44 U/L High 5 - 33 U/L [facility] Anion gap [Moles/Vol] 12 mmol/L 9 - 17 mmol/L [employer] [facility] AST [Catalytic activity/Vol] 32 U/L High NINF - 32 U/L [employer] [facility] Bilirubin [Mass/Vol] 0.4 mg/dL 0.3 - 1 .2 mg/dL [facility] Calcium [Mass/Vol] 9.2 mg/dL 8.6 - 10. 4 mg/dL [employer] [facility] Chloride [Moles/Vol] 99 mmol/L 98 - 10 7 mmol/L [employer] [facility] CO2 [Moles/Vol] 27 mmol/L 20 - 31 mmol/L [employer] [facility] Creatinine [Mass/Vol] 0.97 mg/dL High 0.50 - 0.90 mg/dL [employer] [facility] GFR/1.73 sq M.predicted MDRD (S/P/Bld) [Vol rate/Area] - PINF [employer] [facility] Comment on above: Effective Nov 28, 2021 These results are not intended for use in patients <18 years of age. eGFR results are calculated without a race factor using the 2020 CKD-EPI equation. Careful clinical correlation is recommended, particularly when comparing to results calculated using previous equations. The CKD-EPI equation is less accurate in patients with extremes of muscle mass, extra-renal metabolism of creatine, excessive creatine ingestion, or following therapy that affects renal tubular secretion. Glucose [Mass/Vol] 93 mg/dL 70 - 99 mg/dL [facility] Interpretation and review of laboratory results Abnormal [facility] Potassium [Moles/Vol] 4.2 mmol/L 3.7 - 5.3 mmol/L [facility] Protein [Mass/Vol] 7.5 g/dL 6.4 - 8.3 g/dL [facility] Sodium [Moles/Vol] 138 mmol/L 135 - 144 mmol/L [facility] Urea nitrogen (BldV) [Mass/Vol] 18 mg/dL 6 - 20 mg/dL [facility] Urea nitrogen/Creatinine (Bld) [Mass ratio] 19 9 - 20 [facility] D-Dimer, Quantitativeon 11-27 D-Dimer, Quant 0.79 High [facility] Comment on above: When combined with a low clinical probability, a D dimer value of <0.50 mg/L FEU is considered negative for DVT and PE (negative predictive value of 98%, sensitivity of 97%). If this test is not being used to help rule out DVT and PE, then the following reference range should be utilized: 0.00 - 0.59 mg/L FEU. The D-Dimer assay is intended for use as an aid in the diagnosis of venous thromboembolism (DVT and PE) and the results should be interpreted in conjunction with the patient's medical history, clinical presentation, and other findings. Elevated levels of D-dimer activity can be seen in any state of coagulation activation and is not recommended in patients with therapeutic dose anticoagulant therapy for >24 hours, fibrinolytic therapy within the previous 7 days, trauma or surgery within the previous 4 weeks, disseminated malignancies, aortic aneurysm, sepsis, severe infections, pneumonia, severe skin infections, liver cirrhosis, advanced age, coronary disease, diabetes, and . A very low percentage of patients with DVT may yield D-dimer results below the cutoff of 0.5 mg/L FEU. This is known to be more prevalent in patients with distal DVT. Interpretation and review of laboratory results Abnormal [facility] Magnesiumon 12-22-2021 Magnesium [Mass/Vol] 2.2 mg/dL 1.6 - 2 .6 mg/dL [facility] No Panel Informationon 12-22 [facility] JENNIFER ARTURO DIGITAL DIAGNOSTIC UNILATERAL RIGHTon 09-26-2021 No mammographic evidence of malignancy BIRADS: BIRADS - CATEGORY 1 Negative. Normal interval follow-up is recommended in 12 months. OVERALL ASSESSMENT - NEGATIVE A letter of notification will be sent to the patient regarding the results. [employer] recommends annual mammograms for women 40 years and older. [facility] CONSOLIDATED EXAMINATION: DIAGNOSTIC DIGITAL RIGHT BREAST MAMMOGRAM WITH TOMOSYNTHESIS, 09/26/2021 2:11 pm TECHNIQUE: Diagnostic mammography of the right breast was performed with tomosynthesis. 2D standard and 3D tomosynthesis combination imaging performed through the right breast. Computer aided detection was utilized in the interpretation of this exam. Views: COMPARISON: August 24, 2021 HISTORY: ORDERING SYSTEM PROVIDED HISTORY: Abnormality of right breast on screening mammography FINDINGS: Right breast is heterogeneously dense which can obscure small masses. Area of concern in the outer central right breast sufficiently disperses with spot compressed imaging with no suspicious findings on today's study. [facility] CONSOLIDATED Radiology Study observation (narrative) [facility] [employer] Phone: [facility] ARTURO DIGITAL DIAGNOSTIC UNILATERAL RIGHTOrdered By: Luis Fernando Lozano on 09-26-2021 [facility] [employer] Phone: ECHO Complete 2D W Doppler W ColorOrdered By: Jevon Yepez on 09-06-2020 [facility] Transthoracic Echocardiography Report (TTE) Patient Name [facility] Date of Study 09/06/2020 ENE W Date of 1965 Gender Female Age 55 year(s) Race Room Number Height: 62 inch, 157.48 cm Corporate ID [id number] Weight: 180 pounds, 81.6 kg # Patient Acct [id number] BSA: 1.83 m^2 BMI: 32.92 kg/m^2 # MR # [id number] [employer] Magaly Worthy Interpreting Physician Heather Meneses Fellow Referring Nurse Practitioner Interpreting Referring Physician ROMELIA ODELL Fellow * Type of Study TTE procedure:2D Echocardiogram, M-Mode, Doppler, Color Doppler. Procedure Date Date: 09/06/2020 Start: 08:36 AM Study Location: [facility] Indications:Chest pain. History / Tech. Comments: Chest pain. PMHX: exertional dyspnea, palpitations Patient Status: Outpatient Height: 62 inches Weight: 180 pounds BSA: 1.83 m^2 BMI: 32.92 kg/m^2 BP: 140/82 mmHg CONCLUSIONS Summary Global left ventricular systolic function appears preserved with an estimated ejection fraction of >65%. The left ventricular cavity size is within normal limits and the left ventricular wall thickness is within normal limits. No definite specific wall motion abnormalities were identified. No significant valvular abnormalities. Evidence of mild (grade I) diastolic dysfunction is seen. No prior studies were available for comparison Signature FINDINGS Left Atrium Left atrium is normal in size. Left Ventricle Global left ventricular systolic function appears preserved with an estimated ejection fraction of >65%. The left ventricular cavity size is within normal limits and the left ventricular wall thickness is within normal limits. No definite specific wall motion abnormalities were identified. Right Atrium Right atrium is normal in size. Right Ventricle Normal right ventricular size and function. Mitral Valve Normal mitral valve structure with trivial mitral regurgitation. Aortic Valve Normal aortic valve structure and function without stenosis or regurgitation. Tricuspid Valve Normal tricuspid valve structure and function. Pulmonic Valve The pulmonic valve is normal in structure. Pericardial Effusion An anterior echo free space is seen suggestive of a small effusion or fat pad. Miscellaneous Normal aortic root dimension. Evidence of mild (grade I) diastolic dysfunction is seen. M-mode / 2D Measurements & Calculations: LVIDd:3.89 cm(3.7 - 5.6 cm) Diastolic Volume:39.96 ml LVIDs:2.41 cm(2.2 - 4.0 cm) Systolic Volume:12.04 ml IVSd:0.96 cm(0.6 - 1.1 cm) Aortic Root:2.56 cm(2.0 - 3.7 cm) LVPWd:0.97 cm(0.6 - 1.1 cm) LA Dimension: 3.24 cm(1.9 - 4.0 cm) Fractional Shortenin.05 % LA volume/Index: 32.8 ml /18m^2 Calculated LVEF (%): 69.87 % AV Cusp Separation: 1.32 cm Mitral: Aortic Valve Area (P1/2-Time): 2.8 cm^2 Peak Velocity: 1.19 m/s Peak E-Wave: 0.64 m/s Mean Velocity: 0.86 m/s Peak A-Wave: 0.74 m/s Peak Gradient: 5.66 mmHg E/A Ratio: 0.87 Mean Gradient: 3.25 mmHg Peak Gradient: 1.63 mmHg Acceleration Time: 60.78 msec P1/2t: 78.51 msec AV VTI: 25.16 cm Pulmonic: Peak Velocity: 0.79 m/s Estimated RA Pressure: 3 mmHg Peak Gradient: 2.5 mmHg Diastology / Tissue Doppler Lateral Wall E' velocity:0.09 m/s Lateral Wall E/E':6.32 [employer] Work Phone: Maicol, pn Incoming Cardio Results From [facility]/Ge - 09/06/2020 12:46 PM EDT [facility] Transthoracic Echocardiography Report (TTE) Patient Name KATERINA Date of Study 09/06/2020 ENE Quinonez Date of 1965 Gender Female Age 55 year(s) Race Room Number Height: 62 inch, 157.48 cm Corporate ID [id number] Weight: 180 pounds, 81.6 kg # Patient Acct [id number] BSA: 1.83 m^2 BMI: 32.92 kg/m^2 # MR # [id number] Shingle [employer] Cutter Magaly Worthy Interpreting Physician Heather Meneses Fellow Referring Nurse Practitioner Interpreting Referring Physician ROMELIA ODELL Fellow * Type of Study TTE procedure:2D Echocardiogram, M-Mode, Doppler, Color Doppler. Procedure Date Date: 09/06/2020 Start: 08:36 AM Study Location: [facility] Indications:Chest pain. History / Tech. Comments: Chest pain. PMHX: exertional dyspnea, palpitations Patient Status: Outpatient Height: 62 inches Weight: 180 pounds BSA: 1.83 m^2 BMI: 32.92 kg/m^2 BP: 140/82 mmHg CONCLUSIONS Summary Global left ventricular systolic function appears preserved with an estimated ejection fraction of >65%. The left ventricular cavity size is within normal limits and the left ventricular wall thickness is within normal limits. No definite specific wall motion abnormalities were identified. No significant valvular abnormalities. Evidence of mild (grade I) diastolic dysfunction is seen. No prior studies were available for comparison Signature - - - - FINDINGS Left Atrium Left atrium is normal in size. Left Ventricle Global left ventricular systolic function appears preserved with an estimated ejection fraction of >65%. The left ventricular cavity size is within normal limits and the left ventricular wall thickness is within normal limits. No definite specific wall motion abnormalities were identified. Right Atrium Right atrium is normal in size. Right Ventricle Normal right ventricular size and function. Mitral Valve Normal mitral valve structure with trivial mitral regurgitation. Aortic Valve Normal aortic valve structure and function without stenosis or regurgitation. Tricuspid Valve Normal tricuspid valve structure and function. Pulmonic Valve The pulmonic valve is normal in structure. Pericardial Effusion An anterior echo free space is seen suggestive of a small effusion or fat pad. Miscellaneous Normal aortic root dimension. Evidence of mild (grade I) diastolic dysfunction is seen. M-mode / 2D Measurements & Calculations: LVIDd:3.89 cm(3.7 - 5.6 cm) Diastolic Volume:39.96 ml LVIDs:2.41 cm(2.2 - 4.0 cm) Systolic Volume:12.04 ml IVSd:0.96 cm(0.6 - 1.1 cm) Aortic Root:2.56 cm(2.0 - 3.7 cm) LVPWd:0.97 cm(0.6 - 1.1 cm) LA Dimension: 3.24 cm(1.9 - 4.0 cm) Fractional Shortenin.05 % LA volume/Index: 32.8 ml /18m^2 Calculated LVEF (%): 69.87 % AV Cusp Separation: 1.32 cm Mitral: Aortic Valve Area (P1/2-Time): 2.8 cm^2 Peak Velocity: 1.19 m/s Peak E-Wave: 0.64 m/s Mean Velocity: 0.86 m/s Peak A-Wave: 0.74 m/s Peak Gradient: 5.66 mmHg E/A Ratio: 0.87 Mean Gradient: 3.25 mmHg Peak Gradient: 1.63 mmHg Acceleration Time: 60.78 msec P1/2t: 78.51 msec AV VTI: 25.16 cm Pulmonic: Peak Velocity: 0.79 m/s Estimated RA Pressure: 3 mmHg Peak Gradient: 2.5 mmHg Diastology / Tissue Doppler Lateral Wall E' velocity:0.09 m/s Lateral Wall E/E':6.32 [employer] Phone: [employer] Phone: Lipid PanelOrdered By: Jd Yepez on 08-24-2020 Cholesterol [Mass/Vol] 232 mg/dL High <200 [employer] Phone: Comment on above: Cholesterol Guidelines: <200 Desirable 200-240 Borderline >240 Undesirable Cholesterol in HDL [Mass/Vol] 69 mg/dL >40 [employer] Phone: Comment on above: HDL Guidelines: <40 Undesirable 40-59 Borderline >59 Desirable Cholesterol in LDL [Mass/Vol] 133 mg/dL High 0 - 130 mg/dL [employer] Phone: Comment on above: LDL Guidelines: <100 Desirable 100-129 Near to/above Desirable 130-159 Borderline >159 Undesirable Direct (measured) LDL and calculated LDL are not interchangeable tests. Cholesterol in VLDL [Mass/Vol] NOT REPORTED 1 - 30 mg/dL [employer] Phone: Cholesterol.total/Chol esterol in HDL [Mass ratio] 3.4 {ratio} <5 [employer] Phone: Interpretation and review of laboratory results Abnormal [employer] Phone: Triglyceride [Mass/Vol] 151 mg/dL High <150 [employer] Work Phone: Comment on above: Triglyceride Guidelines: <150 Desirable 150-199 Borderline 200-499 High >499 Very high Based on AHA Guidelines for fasting triglyceride, November 2011. [employer] Phone: CBC Auto DifferentialOrdered By: Jevon Yepez on 08-23-2020 [employer] # 0.21 [employer] Work Phone: Absolute Immature Granulocyte <0.03 [employer] Work Phone: Absolute Lymph # 2.65 [employer] Work Phone: Absolute [place] # 0.56 [employer] [facility] [place] Work Phone: Basophils (Bld) [#/Vol] 0.04 10*3/uL [employer] Phone: Basophils/100 WBC (Bld) 1 % 0 - 2 % [employer] Phone: Differential Type NOT REPORTED [employer] Phone: Eosinophils/100 WBC (Bld) 3 % 1 - 4 % [employer] Phone: Hematocrit (Bld) [Volume fraction] 43.3 % 36.3 - 47.1 % [employer] Phone: Hemoglobin.gastrointes tinal spec 1 Ql (Stl) 13.5 g/dL 11.9 - 15.1 g/dL [employer] Phone: Immature granulocytes/100 WBC (Bld) 0 % 0 [employer] Phone: Lymphocytes/100 WBC (Bld) 37 % 24 - 43 % [employer] Phone: MCH (RBC) [Entitic mass] 28.4 pg 25.2 - 33.5 pg [employer] Phone: MCHC (RBC) [Mass/Vol] 31.2 g/dL 28.4 - 34.8 g/dL [employer] Phone: MCV (RBC) [Entitic vol] 91.2 fL 82.6 - 102.9 fL [employer] Work Phone: Monocytes/100 WBC (Bld) 8 % 3 - 12 % [employer] Work Phone: NRBC Automated 0.0 0.0 per 100 WBC [employer] Phone: Platelet distribution width (Bld) [Ratio] 13.0 % 11.8 - 14.4 % [employer] Phone: Platelet Estimate NOT REPORTED [employer] Phone: Platelet mean volume (Bld) [Entitic vol] 9.8 fL 8.1 - 13.5 fL [employer] Phone: Platelets (Bld) [#/Vol] 294 10*3/uL [employer] Phone: RBC (Bld) [#/Vol] 4.75 10*6/uL 3.95 - 5.1 1 m/uL [employer] Work Phone: RBC (Bld) [#/Vol] NOT REPORTED [employer] Work Phone: Segmented neutrophils/100 WBC (Bld) 51 % 36 - 65 % [employer] Work Phone: Segs Absolute 3.68 [employer] Work Phone: WBC (Bld) [#/Vol] 7.2 10*3/uL [employer] Work Phone: WBC (Bld) [#/Vol] NOT REPORTED [employer] Work Phone: [employer] Work Phone: Comprehensive Metabolic Pane lOrdered By: Jevon Yepez on 08-23-2020 Albumin [Mass/Vol] 4.2 g/dL 3.5 - 5.2 g/dL [employer] Phone: Albumin/Globulin [Mass ratio] 1.2 {ratio} [employer] Phone: ALP (Bld) [Catalytic activity/Vol] 78 U/L 35 - 104 U/L [employer] Phone: ALT [Catalytic activity/Vol] 35 U/L High 5 - 33 U/L [employer] Phone: Anion gap [Moles/Vol] 9 mmol/L 9 - 17 mmol/L [employer] Phone: AST [Catalytic activity/Vol] 31 U/L <32 [employer] Phone: Bilirubin [Mass/Vol] 0.31 mg/dL 0.3 - 1 .2 mg/dL [employer] Phone: Calcium [Mass/Vol] 9.2 mg/dL 8.6 - 10. 4 mg/dL [employer] Phone: Chloride [Moles/Vol] 101 mmol/L 98 - 10 7 mmol/L [employer] Phone: CO2 [Moles/Vol] 26 mmol/L 20 - 31 mmol/L [employer] Phone: Creatinine [Mass/Vol] 0.81 mg/dL 0.50 - 0.90 mg/dL [employer] Phone: Free PSA/Total PSA [Mass fraction] 7.8 g/dL 6.4 - 8.3 g/dL [employer] Phone: GFR >60 >60 mL/min [employer] Phone: GFR Non- >60 >60 mL/min [employer] Phone: Glucose [Mass/Vol] 66 mg/dL Low 70 - 99 mg/dL [employer] Phone: Interpretation and review of laboratory results Abnormal [employer] Phone: Potassium [Moles/Vol] 4.4 mmol/L 3.7 - 5.3 mmol/L [employer] Phone: Sodium [Moles/Vol] 136 mmol/L 135 - 144 mmol/L [employer] Phone: Urea nitrogen (BldV) [Mass/Vol] 17 mg/dL 6 - 20 mg/dL [employer] Phone: Urea nitrogen/Creatinine (Bld) [Mass ratio] 21 High [employer] Phone: [employer] Phone: EKG 12 LeadOrdered By: Jd Yepez on 08-23-2020 Atrial Rate 62 BPM [employer] Phone: P [place] 29 degrees [employer] Phone: P-R Interval 184 ms [employer] Phone: Q-T Interval 410 ms [employer] Phone: QRS Duration 76 ms [employer] Phone: QTc Calculation (Bazett) 416 ms [employer] Phone: R [place] 12 degrees [employer] Phone: T [place] 28 degrees [employer] Phone: Ventricular Rate 62 BPM [employer] Work Phone: Normal sinus rhythm Low voltage QRS Borderline ECG No previous ECGs available Confirmed by Heather Meneses MD ([id number]) on 08/23/2020 8:54:15 PM [employer] Phone: Maicol, pn Incoming Ekg Results From [email or web address] - 08/23/2020 8:54 PM EDT Normal sinus rhythm Low voltage QRS Borderline ECG No previous ECGs available Confirmed by Heather Meneses MD ([id number]) on 08/23/2020 8:54:15 PM [employer] Phone: [employer] Phone: Laboratory - Chemistry and C hemistry - challengeOrdered By: Jevon Yepez on 08-23-2020 GFR/1.73 sq M.predicted MDRD (S/P/Bld) [Vol rate/Area] [employer] Phone: Comment on above: Average GFR for 50-5 9 years old: 93 mL/min/1.73sq m Chronic Kidney Disease: <60 mL/min/1.73sq m Kidney failure: <15 mL/min/1.73sq m eGFR calculated using average adult body mass. Additional eGFR calculator available at: http://www.[employer]/Fair value_crcl_2012.htm Stage 1: Some kidney damage normal GFR Stage 2: Mild kidney damage GFR 60-89 Stage 3: Moderate kidney damage GFR 30-59 Stage 4: Severe kidney damage GFR 15-29 Stage 5: Severe kidney damage GFR <15 ESRD - chronic treatment by dialysis or transplant XR CHEST (2 VW)Ordered By: Michael Yepez on 08-23-2020 No acute process. [employer] Phone: EXAMINATION: TWO XRA Y VIEWS OF THE CHEST 08/23/2020 1:47 pm COMPARISON: None. HISTORY: ORDERING SYSTEM PROVIDED HISTORY: Chest pain, unspecified type FINDINGS: Heart appears normal in size. Lungs are clear. No free air. Osseous structures demonstrate degenerative change. [employer] Phone: Maicol, pn Incoming Radiant Results From [email or web address] - 08/23/2020 1:57 PM EDT EXAMINATION: TWO XRAY VIEWS OF THE CHEST 08/23/2020 1:47 pm COMPARISON: None. HISTORY: ORDERING SYSTEM PROVIDED HISTORY: Chest pain, unspecified type FINDINGS: Heart appears normal in size. Lungs are clear. No free air. Osseous structures demonstrate degenerative change. IMPRESSION: No acute process. [employer] Phone: [employer] Phone: Coding Summaryon 10-01-2019 Coding Summary CODING DATE: 10/01/2019 [facility] STATUS: Home PAYOR: Elliot Varela ADMIT DX: REASON FOR VISIT DX: Z20.828 Contact with and (suspected) exposure to other viral communicable diseases FINAL DX: PRINCIPAL: Z20.828 Contact with and (suspected) exposure to other viral communicable diseases SECONDARY: PYMT PROC APC STAT DESCRIPTION DOCTOR NAME DATE NOTE: The code number assigned matches the documented diagnosis and / or procedure in the patient's chart. However, the narrative phrase printed from the coding software may appear abbreviated, or result in slightly different terminology. Coded By: Emily Gamboa Date Saved: 10/01/2019 12:26 pm Normal [facility] 2019 Novel Coronavirus (CoVI D-19), SHANNON LCon 09-24-2019 SARS-CoV-2, SHANNON (COVID-19) LC Not Detected Not Detected [facility] Comment on above: Result Comment: This test was developed and its performance characteristics determined by [employer]. This test has not been FDA cleared or approved. This test has been authorized by FDA under an Emergency Use Authorization (EUA). This test is only authorized for the duration of time the declaration that circumstances exist justifying the authorization of the emergency use of in vitro diagnostic tests for detection of SARS-CoV-2 virus and/or diagnosis of COVID-19 infection under section 564(b)(1) of the Act, 21 U.S.C. 360bbb-3(b)(1), unless the authorization is terminated or revoked sooner. When diagnostic testing is negative, the possibility of a false negative result should be considered in the context of a patient's recent exposures and the presence of clinical signs and symptoms consistent with COVID-19. An individual without symptoms of COVID-19 and who is not shedding SARS-CoV-2 virus would expect to have a negative (not detected) result in this assay. Performed At: [facility] [address] [facility] [place] [id number] Mary Burgos MD Ph:[phone] Performed By: #### 6 [id number] #### [facility] (DEFAULT) [address] [place] [address] Provider Orderson 09-24-2019 Provider Orders [id number] .00[facility] Consent Formson 09-23-2019 Consent Forms [id number] [facility] 09-23-2019 Provider Orders [id number] .00[facility] Miscellaneous Testing LCon 0 09-22-2019 Test Code [id number] [facility] Comment on above: Performed By: #### 6 [id number], [id number] #### [facility] (DEFAULT) [address] [place] [address] Test Name INPATIENT [facility] Comment on above: Performed By: #### 6 [id number] #### [facility] (DEFAULT) [address] [place] [address] Coding Summaryon 05-02-2019 Coding Summary CODING DATE: 05/02/2019 [facility] STATUS: Home PAYOR: [employer] APC DESCRIPTION 5522 Level 2 Imaging without Contrast ADMIT DX: REASON FOR VISIT DX: M54.2 Cervicalgia M54.6 Pain in thoracic spine M54.5 Low back pain FINAL DX: PRINCIPAL: M54.2 Cervicalgia SECONDARY: M54.6 Pain in thoracic spine M54.5 Low back pain M54.10 Radiculopathy, site unspecified PYMT PROC APC STAT DESCRIPTION DOCTOR NAME DATE NOTE: The code number assigned matches the documented diagnosis and / or procedure in the patient's chart. However, the narrative phrase printed from the coding software may appear abbreviated, or result in slightly different terminology. Coded By: Emily Gamboa Date Saved: 05/02/2019 10:30 am [facility] Provider Orderson 05-02-2019 Provider Orders [id number] [place] [address] XR Spine Cervical 6 or More Viewson 05-01-2019 XR Spine Cervical 6 or More Views EXAM: XR Cervical Spine, 7 Views, XR Thoracic Spine, 3 Views, and Lumbar Spine, 5 Views. HISTORY: Past history of gymnastics injuries. Neck pain with LUE radiculopathy, mid back pain with right rib radiculopathy, and low back pain with left radiculopathy. COMPARISON: None. CERVICAL SPINE: TECHNIQUE: Seven views of the cervical spine were obtained to include AP, lateral and oblique views. FINDINGS: Vertebral body heights are grossly well-maintained. Moderate to marked disc space narrowing at C3-C4, mild to moderate narrowing at C4-C5, moderate narrowing at C5-C6 and mild to moderate narrowing at C6-C7. Mild anterior spurring at multiple levels. Mild posterior spurring from C3-C4 through C5-C6. Spinolaminar line is grossly intact. Oblique views demonstrate mild neural foraminal narrowing from C3-C4 through C6-C7 on the left with mild to moderate narrowing from C3-C4 through C6-C7 on the right. Atlantoaxial interval is unremarkable. No definite acute fracture or dislocation. Slight 1.5 mm posterior offset of C3 vertebral body upon C4 likely related to ligament laxity/degenerative change. Postoperative clips seen just to the left of midline. THORACIC SPINE: TECHNIQUE: Three views of the thoracic spine were obtained to include AP, lateral and directed lateral cervicothoracic junction views. FINDINGS: Vertebral body heights are grossly well-maintained. Mild disc space narrowing at multiple levels. Mild anterior spurring in the mid and lower thoracic spine. Pedicles are grossly intact. Slight convexity of the upper/mid thoracic spine to the right. No definite acute fracture or dislocation. LUMBAR SPINE: TECHNIQUE: Five views of the lumbar spine were obtained to include AP, lateral, both oblique and directed lateral lumbosacral views. FINDINGS: Vertebral body heights are grossly well-maintained. Moderate to marked disc space narrowing at L2-L3 with mild to moderate endplate degenerative changes. Mild disc space narrowing at L1-L2. Mild anterior spurring at L2-L3 with minimal anterior spurring at L3-L4. Mild posterior spurring at L2-L3. Moderate degenerative facet changes bilaterally at L4-L5 and L5-S1 as well as at L3-L4 on the left. No definite acute fracture or dislocation. Postoperative clips are noted in the right upper quadrant of the abdomen. IMPRESSION: Cervical spine study demonstrates degenerative changes and disc space/neural foraminal narrowing as described. Thoracic spine study demonstrates degenerative changes as described, slight convexity to the right. Lumbar spine study demonstrates degenerative changes as noted. Follow-up as needed. Final Dictated by: Jamar Ott MD Dictated DT/TM: 05/01/19 4:28 Signed (Electronic Signature): Jamar Ott MD 05/01/19 4:46 pm Technologist: CARLOS [facility] XR Spine Lumbosacral Minimum 4 Viewson 05-01-2019 XR Spine Lumbosacral Minimum 4 Views EXAM: XR Cervical Spine, 7 Views, XR Thoracic Spine, 3 Views, and Lumbar Spine, 5 Views. HISTORY: Past history of gymnastics injuries. Neck pain with LUE radiculopathy, mid back pain with right rib radiculopathy, and low back pain with left radiculopathy. COMPARISON: None. CERVICAL SPINE: TECHNIQUE: Seven views of the cervical spine were obtained to include AP, lateral and oblique views. FINDINGS: Vertebral body heights are grossly well-maintained. Moderate to marked disc space narrowing at C3-C4, mild to moderate narrowing at C4-C5, moderate narrowing at C5-C6 and mild to moderate narrowing at C6-C7. Mild anterior spurring at multiple levels. Mild posterior spurring from C3-C4 through C5-C6. Spinolaminar line is grossly intact. Oblique views demonstrate mild neural foraminal narrowing from C3-C4 through C6-C7 on the left with mild to moderate narrowing from C3-C4 through C6-C7 on the right. Atlantoaxial interval is unremarkable. No definite acute fracture or dislocation. Slight 1.5 mm posterior offset of C3 vertebral body upon C4 likely related to ligament laxity/degenerative change. Postoperative clips seen just to the left of midline. THORACIC SPINE: TECHNIQUE: Three views of the thoracic spine were obtained to include AP, lateral and directed lateral cervicothoracic junction views. FINDINGS: Vertebral body heights are grossly well-maintained. Mild disc space narrowing at multiple levels. Mild anterior spurring in the mid and lower thoracic spine. Pedicles are grossly intact. Slight convexity of the upper/mid thoracic spine to the right. No definite acute fracture or dislocation. LUMBAR SPINE: TECHNIQUE: Five views of the lumbar spine were obtained to include AP, lateral, both oblique and directed lateral lumbosacral views. FINDINGS: Vertebral body heights are grossly well-maintained. Moderate to marked disc space narrowing at L2-L3 with mild to moderate endplate degenerative changes. Mild disc space narrowing at L1-L2. Mild anterior spurring at L2-L3 with minimal anterior spurring at L3-L4. Mild posterior spurring at L2-L3. Moderate degenerative facet changes bilaterally at L4-L5 and L5-S1 as well as at L3-L4 on the left. No definite acute fracture or dislocation. Postoperative clips are noted in the right upper quadrant of the abdomen. IMPRESSION: Cervical spine study demonstrates degenerative changes and disc space/neural foraminal narrowing as described. Thoracic spine study demonstrates degenerative changes as described, slight convexity to the right. Lumbar spine study demonstrates degenerative changes as noted. Follow-up as needed. Final Dictated by: Jamar Ott MD Dictated DT/TM: 05/01/19 4:28 Signed (Electronic Signature): Jamar Ott MD 05/01/19 4:46 pm Technologist: CARLOS [facility] XR Spine Thoracic 3 Viewson 05-01-2019 XR Spine Thoracic 3 Views EXAM: XR Cervical Spine, 7 Views, XR Thoracic Spine, 3 Views, and Lumbar Spine, 5 Views. HISTORY: Past history of gymnastics injuries. Neck pain with LUE radiculopathy, mid back pain with right rib radiculopathy, and low back pain with left radiculopathy. COMPARISON: None. CERVICAL SPINE: TECHNIQUE: Seven views of the cervical spine were obtained to include AP, lateral and oblique views. FINDINGS: Vertebral body heights are grossly well-maintained. Moderate to marked disc space narrowing at C3-C4, mild to moderate narrowing at C4-C5, moderate narrowing at C5-C6 and mild to moderate narrowing at C6-C7. Mild anterior spurring at multiple levels. Mild posterior spurring from C3-C4 through C5-C6. Spinolaminar line is grossly intact. Oblique views demonstrate mild neural foraminal narrowing from C3-C4 through C6-C7 on the left with mild to moderate narrowing from C3-C4 through C6-C7 on the right. Atlantoaxial interval is unremarkable. No definite acute fracture or dislocation. Slight 1.5 mm posterior offset of C3 vertebral body upon C4 likely related to ligament laxity/degenerative change. Postoperative clips seen just to the left of midline. THORACIC SPINE: TECHNIQUE: Three views of the thoracic spine were obtained to include AP, lateral and directed lateral cervicothoracic junction views. FINDINGS: Vertebral body heights are grossly well-maintained. Mild disc space narrowing at multiple levels. Mild anterior spurring in the mid and lower thoracic spine. Pedicles are grossly intact. Slight convexity of the upper/mid thoracic spine to the right. No definite acute fracture or dislocation. LUMBAR SPINE: TECHNIQUE: Five views of the lumbar spine were obtained to include AP, lateral, both oblique and directed lateral lumbosacral views. FINDINGS: Vertebral body heights are grossly well-maintained. Moderate to marked disc space narrowing at L2-L3 with mild to moderate endplate degenerative changes. Mild disc space narrowing at L1-L2. Mild anterior spurring at L2-L3 with minimal anterior spurring at L3-L4. Mild posterior spurring at L2-L3. Moderate degenerative facet changes bilaterally at L4-L5 and L5-S1 as well as at L3-L4 on the left. No definite acute fracture or dislocation. Postoperative clips are noted in the right upper quadrant of the abdomen. IMPRESSION: Cervical spine study demonstrates degenerative changes and disc space/neural foraminal narrowing as described. Thoracic spine study demonstrates degenerative changes as described, slight convexity to the right. Lumbar spine study demonstrates degenerative changes as noted. Follow-up as needed. Final Dictated by: Jamar Ott MD Dictated DT/TM: 05/01/19 4:28 Signed (Electronic Signature): Jamar Ott MD 05/01/19 4:46 pm Technologist: CARLOS [facility] 11-15-2018 Apparent area of distortion is again demonstrated, which in retrospect appears similar compared to prior examinations and is likely more prominent based on technical differences and with current tomosynthesis evaluation (compared to prior conventional mammography). No corresponding sonographic abnormality. Upon interview with the patient, she describes a history of lumpectomy in the right breast with a benign result 10 years ago, which is consistent with the subtle appearance of this finding and relative mammographic stability. As such, return to yearly screening schedule is recommended in the absence of symptoms. I discussed these findings and recommendations with the patient in person at the time of imaging. BI-RADS 2 BIRADS: BIRADS - CATEGORY 2 Benign, no evidence of malignancy. Normal interval follow-up is recommended in 12 months. OVERALL ASSESSMENT - BENIGN A letter of notification will be sent to the patient regarding the results. [employer] recommends annual mammograms for women 40 years and older. [place], [place] EXAMINATION: DIAGNOSTIC DIGITAL RIGHT BREAST MAMMOGRAM; TARGETED ULTRASOUND OF THE RIGHT BREAST, 11/15/2018 2:00 pm TECHNIQUE: Diagnostic mammography of the right breast was performed. Computer aided detection was utilized in the interpretation of this exam.; Targeted ultrasound of the right breast was performed. Views: Compression in the CC and MLO views with tomosynthesis. True lateral view with tomosynthesis. COMPARISON: November 01, 2017, February 12, 2017, May 14, 2015. HISTORY: ORDERING SYSTEM PROVIDED HISTORY: Abnormal mammogram FINDINGS: DIAGNOSTIC MAMMOGRAM: The right breast is heterogeneously dense. The subtle area of apparent distortion remains visible on the CC view in the anterior 12 o'clock region. This finding is not well demonstrated on the MLO or true lateral views. There is no evidence for mass or suspicious microcalcifications. TARGETED ULTRASOUND: Targeted ultrasound in the anterior 12 o'clock breast reveals no sonographic abnormality. [place], [place], pn Incoming Radiant Results From [email or web address] - 11/15/2018 2:26 PM EDT EXAMINATION: DIAGNOSTIC DIGITAL RIGHT BREAST MAMMOGRAM; TARGETED ULTRASOUND OF THE RIGHT BREAST, 11/15/2018 2:00 pm TECHNIQUE: Diagnostic mammography of the right breast was performed. Computer aided detection was utilized in the interpretation of this exam.; Targeted ultrasound of the right breast was performed. Views: Compression in the CC and MLO views with tomosynthesis. True lateral view with tomosynthesis. COMPARISON: November 01, 2017, February 12, 2017, May 14, 2015. HISTORY: ORDERING SYSTEM PROVIDED HISTORY: Abnormal mammogram FINDINGS: DIAGNOSTIC MAMMOGRAM: The right breast is heterogeneously dense. The subtle area of apparent distortion remains visible on the CC view in the anterior 12 o'clock region. This finding is not well demonstrated on the MLO or true lateral views. There is no evidence for mass or suspicious microcalcifications. TARGETED ULTRASOUND: Targeted ultrasound in the anterior 12 o'clock breast reveals no sonographic abnormality. IMPRESSION: Apparent area of distortion is again demonstrated, which in retrospect appears similar compared to prior examinations and is likely more prominent based on technical differences and with current tomosynthesis evaluation (compared to prior conventional mammography). No corresponding sonographic abnormality. Upon interview with the patient, she describes a history of lumpectomy in the right breast with a benign result 10 years ago, which is consistent with the subtle appearance of this finding and relative mammographic stability. As such, return to yearly screening schedule is recommended in the absence of symptoms. I discussed these findings and recommendations with the patient in person at the time of imaging. BI-RADS 2 BIRADS: BIRADS - CATEGORY 2 Benign, no evidence of malignancy. Normal interval follow-up is recommended in 12 months. OVERALL ASSESSMENT - BENIGN A letter of notification will be sent to the patient regarding the results. [employer] recommends annual mammograms for women 40 years and older. [place] Vital Signs Date Time Vital Sign Value Performing Clinician Mk chung 04-09-2023 13:11-0500 Body height 157.5 cm Karol Coleman NP Work Phone: [facility] 04-09-2023 13:11-0500 Body mass index (BMI) [Ratio] 31.28 kg/m2 Karol Coleman MICRO PALEONTOLOGIST Work Phone: [facility] 04-09-2023 13:11-0500 Body temperature 97.9 [degF] Karol Coleman MICRO PALEONTOLOGIST Work Phone: [facility] 04-09-2023 13:11-0500 Body weight 77.56 kg Karol Coleman MICRO PALEONTOLOGIST Work Phone: [facility] 04-09-2023 13:11-0500 Diastolic blood pressure 84 mm[Hg] Karol Coleman MICRO PALEONTOLOGIST Work Phone: [facility] 04-09-2023 13:11-0500 Heart rate 81 /min Karol Coleman MICRO PALEONTOLOGIST Work Phone: [facility] 04-09-2023 13:11-0500 SaO2% (BldA) [Mass fraction] 97 % Karol Coleman MICRO PALEONTOLOGIST Work Phone: [facility] 04-09-2023 13:11-0500 Systolic blood pressure 140 mm[Hg] Karol Coleman MICRO PALEONTOLOGIST Work Phone: [facility] Encounters Encounter Date Encounter Type Care Provider Facility Start: 12-05-2023 End: 12-05-2023 ambulatory ARTEM E FRUTH Not Available Start: 11-12-2023 End: 11-12-2023 ambulatory EDIE SILVA Not Available Start: 11-01-2023 End: 11-01-2023 ambulatory ARTEM E FRUTH Not Available Start: 08-08-2023 End: 08-08-2023 ambulatory DEANDRA A PETITTI Not Available Start: 07-25-2023 End: 07-25-2023 ambulatory DEANDRA A PETITTI Not Available Start: 07-09-2023 End: 07-09-2023 ambulatory DEANDRA A PETITTI Not Available Start: 07-03-2023 End: 07-03-2023 ambulatory ARTEM E FRUTH Not Available Start: 04-09-2023 Bamboo flowsheet Karol macias MICRO PALEONTOLOGIST Work Phone: [facility] Start: 04-09-2023 Bamboo flowsheet Karol macias MICRO PALEONTOLOGIST Work Phone: [facility] Start: 04-09-2023 End: 04-09-2023 Office outpatient visit 15 minutes Karol Coleman MICRO PALEONTOLOGIST Work Phone: [facility] Comment on above: Bronchitis (Primary Dx) Start: 04-09-2023 End: 04-09-2023 ambulatory KAROL COLEMAN Not Available Start: 03-09-2023 End: 03-12-2023 ambulatory JEVON YEPEZ [facility] Start: 03-09-2023 End: 03-11-2023 Subsequent hospital visit by physician Jevon Yepez DO Work Phone: [facility] Start: 03-09-2023 End: 03-09-2023 ambulatory KAROL COLEMAN Not Available Start: 02-28-2023 End: 02-28-2023 ambulatory KAROL COLEMAN Not Available Start: 02-20-2023 End: 02-20-2023 ambulatory KHALIDA BARBER Not Available Start: 02-21-2022 End: 02-22-2022 ambulatory DO Jevon Yepez Facility:[facility] Start: 02-10-2022 End: 02-11-2022 ambulatory Yaya Valencia MD Facility:[facility] erology [facility] Start: 12-22-2021 End: 12-24-2021 Subsequent hospital visit by physician [facility] Cat Scan Room [facility] Laboratory Comment on above: Shortness of breath; [id number] condition Start: 09-26-2021 End: 09-28-2021 Subsequent hospital visit by physician [facility] Gen Radiologist [facility] Comment on above: Abnormality of right breast on screening mammography Abnormal mammogram Start: 08-11-2021 End: 08-11-2021 Subsequent hospital visit by physician [facility] Covid Screening Schedule [facility] Covid Screening Comment on above: Arrived Start: 09-07-2020 End: 09-07-2020 Subsequent hospital visit by physician [facility] Inside Sales Account Representative [facility] EKG Comment on above: Chest pain, unspecif ied type; Exertional dyspnea; Palpitations Arrived Start: 09-06-2020 End: 09-06-2020 Subsequent hospital visit by physician [facility] Echo Room [facility] Echocardiography Comment on above: Chest pain, unspecif ied type; Exertional dyspnea; Palpitations Start: 08-23-2020 End: 08-25-2020 Subsequent hospital visit by physician [facility] Xr Dr Room 2 [facility] EKG Comment on above: Chest pain, unspecif ied type; Exertional dyspnea Start: 10-07-2019 End: 10-07-2019 Subsequent hospital visit by physician [facility] Covid Screening Schedule [facility] Covid Screening Comment on above: Arrived Start: 11-15-2018 End: 11-17-2018 Subsequent hospital visit by physician [facility] Ultrasound Room [facility] Ultrasound Comment on above: Abnormal mammogram Start: 11-01-2018 End: 11-03-2018 Subsequent hospital visit by physician [facility] Mammography Room At [facility] Comment on above: Breast cancer screen ing Procedures Date Procedure Procedure Detail Performing Clinician Start: 12-22-2021 Ct thorax w/contrast material Artem Sifuentes Work Phone: Start: 12-22-2021 Comprehensive metabo lic panel Artem Sifuentes Work Phone: Start: 09-26-2021 End: 09-26-2021 Diagnostic mammography computer-aided detcj uni Jevon Yepez DO Work Phone: Start: 09-06-2020 Echo tthrc r-t 2d w/wom-mode compl spec&colr d Jevon Rubinrer DO Work Phone: Start: 08-23-2020 Radiologic exam ches t 2 views Jevon Yepez DO Work Phone: Start: 08-23-2020 Comprehensive metabo lic panel Jevon Rubinrer DO Work Phone: Start: 08-23-2020 Lipid panel Jevon Rubinrer DO Work Phone: Start: 08-23-2020 Ecg routine ecg w/le ast 12 lds w/i&r Jevon Rubinrer DO Work Phone: Start: 11-15-2018 Us breast uni real t paulino with image complete Artem Sifuentes Other Phone: Start: 11-15-2018 Tomosynthesis, mammo screen Artem Sifuentes Other Phone: Start: 05-09-2016 Colonoscopy Karol saini MICRO PALEONTOLOGIST Work Phone: Start: 11-25-2013 Microscopic observat ion [Identifier] in Cervix by Cyto stain [facility] Schedule Plan of Treatment Date Care Activity Detail Author Start: 10-20-2032 DTaP/Tdap/Td vaccine (2 - Td or Tdap) DTaP/Tdap/Td vaccine (2 - Td or Tdap) [facility] Start: 05-09-2026 Screening for malignant neoplasm of colon [facility] Start: 01-14-2026 Lipid panel Lipids [facility] Start: 08-23-2025 Lipid panel [facility] Start: 09-27-2023 Screening for malignant neoplasm of breast Breast cancer screen [facility] [email or web address] [facility] Start: 08-26-2023 Influenza vaccination Influenza Vaccine (#1) [facility] Comment on above: Postponed from 10/27/2022 (Patient Refus ed) Start: 07-09-2023 End: 07-09-2023 Patient encounter procedure 07/09/2023 11:00 AM EDT Office Visit [facility] [address] [place] [address] Deandra Rodas MD [address] [place] [address] [facility] Start: 04-09-2023 End: 04-09-2023 Patient encounter procedure 04/09/2023 1:00 PM EST Office Visit [facility] [address] [place] [address] Karol Coleman, AZUL [address] [place] [address] Arrived [facility] Comment on above: Arrived Start: 12-15-2022 COVID-19 Vaccine ( season) COVID-19 Vaccine ( season) [facility] Start: 12-15-2022 Shingles vaccine (2 of 2) Shingles vaccine (2 of 2) [facility] Start: 09-26-2022 Influenza vaccination Flu vaccine (#1) [facility] Start: 09-26-2022 Screening for malignant neoplasm of breast Mammogram [facility] Start: 04-14-2022 ambulatory Ambulatory Facility:[facility] Start: 01-14-2022 Hemoglobin A1c measurement A1C test (Diabetic or Prediabetic) [facility] Start: 10-27-2021 Influenza vaccination Flu vaccine (#1) [facility] Start: 09-26-2021 Influenza vaccination Flu vaccine (#1) [facility] Start: 08-23-2021 Hemoglobin A1c measurement A1C test (Diabetic or Prediabetic) [facility] Start: 06-15-2021 COVID-19 Vaccine (4 - Booster for Moderna series) COVID-19 Vaccine (4 - Booster for Moderna series) [facility] Start: 04-11-2021 COVID-19 Vaccine (4 - Booster for Moderna series) COVID-19 Vaccine (4 - Booster for Moderna series) [facility] Start: 11-15-2020 Breast cancer screen [facility] [place] Start: 11-15-2020 Screening for malignant neoplasm of breast Breast cancer screen [facility] Start: 10-27-2020 Influenza vaccination Flu vaccine (#1) [facility] [employer] Work Phone: Start: 09-07-2020 End: 09-07-2020 Patient encounter procedure [facility] Start: 09-06-2020 End: 09-06-2020 Patient encounter procedure 09/06/2020 Appointment Stress Lab [facility] Start: 09-06-2020 End: 09-06-2020 Patient encounter procedure 09/06/2020 Appointment Echocardiography [facility] Start: 10-28-2019 Influenza vaccination Flu vaccine (#1) [place], [place] Start: 02-12-2019 Breast cancer screen Breast cancer screen [place], [place] Start: 11-25-2018 Screening for malignant neoplasm of cervix [facility] Start: 10-27-2018 Influenza vaccination Flu vaccine (#1) [place] Start: 11-25-2016 Screening for malignant neoplasm of cervix Pap smear [facility] Start: 08-17-2013 Colon cancer screen colonoscopy Colon cancer screen colonoscopy [place] Start: 08-17-2013 Screening for malignant neoplasm of colon Colon cancer screen colonoscopy [place] Start: 08-17-2013 Shingles Vaccine (1 of 2) Shingles Vaccine (1 of 2) [facility] Start: 08-17-2008 Screening for malignant neoplasm of colon [facility] Start: 2003 Lipid panel Lipid screen [place], [place] Start: 2003 Lipid screen Lipid screen [place] Start: 08-17-1993 Screening for malignant neoplasm of cervix [facility] Start: 08-17-1984 Cervical cancer screen Cervical cancer screen [place] Start: 08-17-1984 Screening for malignant neoplasm of cervix [facility] Start: 08-17-1982 DTaP/Tdap/Td vaccine (1 - Tdap) DTaP/Tdap/Td vaccine (1 - Tdap) [facility] Start: 08-17-1978 HIV screen HIV screen [place], [place] Start: 08-17-1978 HIV screening [facility] Start: 1975 Depression Screen Depression Screen [facility] [place] [facility] Start: 08-17-1969 Pneumococcal 0-64 years Vaccine (1 - PCV) Pneumococcal 0-64 years Vaccine (1 - PCV) [facility] Start: 08-17-1968 COVID-19 Vaccine (1) COVID-19 Vaccine (1) [facility] Start: 1963 Hepatitis B vaccine (1 of 3 - 3-dose series) Hepatitis B vaccine (1 of 3 - 3-dose series) [facility] Start: 1963 Hepatitis C screen Hepatitis C screen [place], [place] Start: 1963 Hepatitis C screening Hepatitis C screen [place], [place] Start: 1963 Screening for malignant neoplasm of colon [facility] End: 08-11-2021 COVID-19 [facility] Work Phone: Comment on above: Once for 1 Occurrences starting 08/12/19 until 08/11/2021 End: 10-07-2019 Covid-19 Ambulatory Covid-19 Ambulatory Lab Routine Once for 1 Occurrences starting 10/07/2019 until 10/07/2019 [place] Comment on above: Once for 1 Occurrences starting 10/07/19 20 until 10/07/2019 Covid-19 Ambulatory Covid-19 Amb ulatory Lab Routine 10/07/2019 10:15 AM EDT [place] End: 08-23-2020 Gamma GT Gamma GT Lab Routine Once for 1 Occurrences starting 08/23/2020 until 08/23/2020 [facility] [employer] Phone: Comment on above: Once for 1 Occurrences starting 08/24/19 21 until 08/23/2020 Gamma GT Gamma GT Lab Rou ric 08/23/2020 1:29 PM EDT [facility] [employer] Phone: End: 08-23-2020 Hemoglobin A1c/Hemoglobin.total in Blood Hemoglobin A1C Lab Routine Once for 1 Occurrences starting 08/23/2020 until 08/23/2020 [facility] [employer] Phone: Comment on above: Once for 1 Occurrences starting 08/24/19 21 until 08/23/2020 Hemoglobin A1c/Hemoglobin.total in Blood Hemoglobin A1C Lab Routine 08/23/2020 1:29 PM EDT [employer] Phone: End: 08-23-2020 Hepatitis Panel, Acute Hepatitis Panel, Acute Lab Routine Once for 1 Occurrences starting 08/23/2020 until 08/23/2020 [employer] Work Phone: Comment on above: Once for 1 Occurrences starting 08/24/19 21 until 08/23/2020 Hepatitis Panel, Acute Hepatitis Panel, Acute Lab Routine 08/23/2020 1:29 PM EDT [employer] Phone: End: 11-01-2018 JENNIFER DIGITAL SCREEN W OR WO CAD BILATERAL JENNIFER DIGITAL SCREEN W OR WO CAD BILATERAL Imaging Routine Breast cancer screening 1 Occurrences starting 11/01/2018 until 11/01/2018 [place] Comment on above: 1 Occurrences starting 11/01/2018 until 11/01/2018 JENNIFER DIGITAL SCREEN W OR WO CAD BILATERAL JENNIFER DIGITAL SCREEN W OR WO CAD BILATERAL Imaging Routine Breast cancer screening 11/01/2018 1:57 PM EDT [facility] [place] End: 09-06-2020 NM MYOCARDIAL SPECT REST EXERCISE OR RX NM MYOCARDIAL SPECT REST EXERCISE OR RX Imaging Routine Chest pain, unspecified type Exertional dyspnea Palpitations 1 Occurrences starting 09/06/2020 until 09/06/2020 [employer] Phone: Comment on above: 1 Occurrences starting 09/06/2020 until 09/06/2020 Immunizations Immunization Date Immunization Notes Care Provider [facility] 10-20-2022 SARS-COV-2 (COVID-19 ) vaccine, mRNA, spike protein, LNP, bivalent, preservative free, 30 mcg/0.3 mL dose, iam-sucrose formulation Karol Coleman MICRO PALEONTOLOGIST Work Phone: [facility] 10-20-2022 tetanus toxoid, redu alexandr diphtheria toxoid, and acellular pertussis vaccine, adsorbed Karol Coleman MICRO PALEONTOLOGIST Work Phone: [facility] 10-20-2022 zoster vaccine recombinant Karol Coleman MICRO PALEONTOLOGIST Work Phone: [facility] 11-30-2020 influenza, injectabl e, quadrivalent, preservative free Karol Coleman MICRO PALEONTOLOGIST Work Phone: [facility] 11-30-2020 influenza virus vacc ine, unspecified formulation Karol Coleman MICRO PALEONTOLOGIST Work Phone: [facility] 11-25-2019 Seasonal, quadrivale nt, recombinant, injectable influenza vaccine, preservative free Karol Coleman MICRO PALEONTOLOGIST Work Phone: [facility] 01-09-2018 influenza, injectabl e, quadrivalent, contains preservative Karol Coleman MICRO PALEONTOLOGIST Work Phone: [facility] 12-12-2016 influenza, injectabl e, quadrivalent, contains preservative Karol Coleman MICRO PALEONTOLOGIST Work Phone: [facility] 11-28-2016 influenza, injectabl e, quadrivalent, preservative free Karol Coleman MICRO PALEONTOLOGIST Work Phone: [facility] 11-22-2015 influenza, injectabl e, quadrivalent, preservative free Karol Coleman MICRO PALEONTOLOGIST Work Phone: [facility] 12-01-2013 influenza, seasonal, injectable Karol Coleman MICRO PALEONTOLOGIST Work Phone: [facility] Payers Date Payer Category Payer Unknown 2018 Unknown [id number] 2014 Unknown BCBS BCBS OUT OF STATE xxxxxxxxxxxx 2014-Present [address] [place] [address] xxxxxxxxxxxx [id number] 1963 Unknown [id number] 1963 Unknown [id number] 1963 Unknown [id number] 1963 Unknown [id number] 1963 Unknown [id number] 1963 Unknown [id number] 9 1963 Unknown [id number] 9 1963 Unknown [id number] [id number] 9 1963 Unknown [id number] [id number] 9 1963 Unknown [id number] [id number] 9 1963 Unknown [id number] [id number] 9 1963 Unknown [id number] [id number] 9 1963 Unknown [id number] 9 1963 Unknown [id number] 9 1963 Unknown [id number] 9 1963 Unknown [id number] 9 Social History Date Type Detail Facility Start: 11-29-2016 End: 10-27-2022 Tobacco smoking status NHIS Never smoker [place], [place] Start: 11-29-2016 End: 07-26-2022 Alcohol intake Yes [facility] Start: 1965 Sex Assigned At Not on file [place], [place] Start: 11-29-2016 End: 04-09-2023 Alcohol intake Current drinker of alcohol (finding) [facility] [place] [place] Start: 11-29-2016 End: 07-26-2022 Alcohol intake [facility] Start: 09-04-2020 Sexual orientation Heterosexual (finding) FLORESITA EDWARDS [employer] Start: 10-27-2022 Tobacco use and exposure Smokeless tobacco non-user [facility] Within the last year , have you been afraid of your partner or ex-partner? No [facility] Do you belong to any clubs or organizations such as spiritism groups, unions, fraLyatiss or athletic groups, or school groups? Yes [facility] Are you now , , , , never or living with a partner? [facility] How often to you hav e a drink containing alcohol? 2-3 time sa week [facility] How many standard dr inks containing alcohol do you have on a typical day? 1 or 2 [facility] How often do you hav e 6 or more drinks on 1 occasion? Never [facility] How hard is it for y ou to pay for the very basics like food, housing, medical care, and heating Not hard at all [facility] Do you feel stress - tense, restless, nervous, or anxious, or unable to sleep at night because your mind is troubled all the time - these days [OSQ] Only a little [facility] (I/We) worried wheth er (my/our) food would run out before (I/we) got money to buy more. Never true [facility] Start: 10-25-2022 Alcohol Comment Alcohol: 6 or more drinks/weekly ;1 or 2 drinks on a typical day. Caffeine:2-3 cups/day coffee [facility] Clinical Notes 09-06-2020 to 04-09-2023 Karol Coleman NP - 04/09/2023 1:00 PM Joana Chow - 09/07/2020 1:30 PM Elda Taylor RN - 09/06/2020 10:45 AM EDT Note Date & Type Note Facility 04-09-2023 History of Present illness Narrative Ene Borges is a 57 y.o. female presents with chief complaint of URI HPI: HPI Patient Reported S/S to Nurse: Reviewed [facility]- Started Sunday last week C/o Sore throat, sinus and chest congestion, nasal congestion- green, wheezing, nonproductive cough, low grade fevers, ears itching, nausea, PND Denies vomiting, diarrhea, CP, SOB Taking dayquil and rx cough medication PREDIABETES A1C- 12/2020- 6.1 MICROA- 12/2020 LIPID- 12/2020 EYE EXAM- 03/2022 FOOT EXAM- LABS- 11/2021; given order form 04/09/2023 PAP- 12/2021- NILM, HPV negative HEP C SCREENING- none on file MAMMO- 07/2021- cat 0; dx mammo 09/2021- birads1; order given to pt on 04/09/2023 COLON- 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 WELLNESS- 10/27/2022 ACCOUNT MANAGER FOREST SERVICE- Dr Mena DENTIST- Dr Reinoso ENT- Dr Wheat SUBJECTIVE: MEDICATIONS: Current Outpatient Medications Medication Instructions albuterol HFA 90 mcg/act inhaler 1-2 puffs every 4-6 hours as needed for cough/wheezing amoxicillin-clavulanate (Augmentin) 875-125 MG tablet 875 mg, Oral, 2 times daily fluticasone (Flonase) 50 MCG/ACT nasal spray Every 24 hours ipratropium-albuterol (Duo-Neb) 0.5-2.5 mg/3 mL nebulizer solution 3 mL, Nebulization, Every 6 hours RT levothyroxine (Synthroid, Levoxyl) 75 MCG tablet 1 tablet, Oral, Daily loratadine (CLARITIN) 10 mg, Oral, Daily RT methylPREDNISolone (Medrol) 4 MG tablet 1 MEDROL DOSE TWAN Multiple Vitamin (Multivitamin Adult) tablet as directed Orally sertraline (ZOLOFT) 50 mg, Oral, Daily simvastatin (Zocor) 20 MG tablet TAKE 1 TABLET DAILY IN THE EVENING ALLERGIES: Allergies Allergen Reactions Alprazolam Anxiety Quinolones Hives Other Reaction(s): all floroquinolones, pain Achilles tendon pain Linezolid Hives Pollen Extract Other Reaction(s): Congestion SURGICAL HISTORY: Past Surgical History: Procedure Laterality Date BREAST SURGERY 2015 CATARACT EXTRACTION Left 03/2022 CATARACT EXTRACTION Right 04/[address] ANGIOGRAM CHEST 06/18/2015 CT ANGIOGRAM CHEST 06/18/2015 CT ANGIOGRAM HEART CORONARY 04/02/2017 CT ANGIOGRAM TAVR 04/02/2017 IR BIOPSY NECK THYROID Right 04/26/2012 IR BIOPSY NECK THYROID LYMPH NODE BIOPSY 2017 HI LAP,CHOLECYSTECTOMY 04/10/2016 Gall Bladder Removal - lap. SKIN CANCER EXCISION 07/24/2014 Wide-Excision Melanoma/mid-back THYROIDECTOMY, PARTIAL 05/12/2013 FAMILY HISTORY: Family History Adopted: Yes Family history unknown: Yes SOCIAL HISTORY: Social History Tobacco Use Smoking status: Never Smokeless tobacco: Never Vaping Use Vaping Use: Never used Substance Use Topics Alcohol use: Yes Alcohol/week: 3.0 standard drinks of alcohol Types: 3 Cans of beer per week Comment: Alcohol: 6 or more drinks/weekly ;1 or 2 drinks on a typical day. Caffeine:2-3 cups/day coffee Drug use: Never Depression: Not at risk (10/27/2022) PHQ-2 PHQ-2 Score: 0 REVIEW OF SYMPTOMS: Review of Systems Constitutional: Negative for activity change, appetite change, chills, diaphoresis, fatigue and fever. HENT: Positive for congestion, rhinorrhea and sore throat. Respiratory: Negative for cough, chest tightness, shortness of breath and wheezing. Cardiovascular: Negative for chest pain, palpitations and leg swelling. Psychiatric/Behavioral: Negative. OBJECTIVE: Visit Vitals BP 140/84 Pulse 81 Temp 97.9 F (Tympanic) Ht 5' 2 Wt 171 lb SpO2 97% BMI 31.28 kg/m Smoking Status Never BSA 1.84 m Physical Exam Vitals and nursing note reviewed. Constitutional: Appearance: Normal appearance. She is ill-appearing. HENT: Head: Normocephalic and atraumatic. Right Ear: Tympanic membrane, ear canal and external ear normal. There is no impacted cerumen. Left Ear: Tympanic membrane, ear canal and external ear normal. There is no impacted cerumen. Mouth/Throat: Pharynx: No oropharyngeal exudate or posterior oropharyngeal erythema. Eyes: General: Right eye: No discharge. Left eye: No discharge. Extraocular Movements: Extraocular movements intact. Conjunctiva/sclera: Conjunctivae normal. Pupils: Pupils are equal, round, and reactive to light. Cardiovascular: Rate and Rhythm: Normal rate and regular rhythm. Pulses: Normal pulses. Heart sounds: Normal heart sounds. Pulmonary: Effort: Pulmonary effort is normal. No respiratory distress. Breath sounds: Wheezing present. Chest: Chest wall: No tenderness. Abdominal: General: Abdomen is flat. Bowel sounds are normal. Palpations: Abdomen is soft. Skin: General: Skin is warm and dry. Neurological: General: No focal deficit present. Mental Status: She is alert and oriented to person, place, and time. Mental status is at baseline. Sensory: No sensory deficit. Motor: No weakness. Coordination: Coordination normal. Gait: Gait normal. Psychiatric: Mood and Affect: Mood normal. Behavior: Behavior normal. Thought Content: Thought content normal. Judgment: Judgment normal. ASSESSMENT AND PLAN: Assessment/Plan Diagnoses and all orders for this visit: Bronchitis - methylPREDNISolone (Medrol) 4 MG tablet; 1 MEDROL DOSE TWAN - amoxicillin-clavulanate (Augmentin) 875-125 MG tablet; Take 1 tablet (875 mg) by mouth in the morning and 1 tablet (875 mg) before bedtime. Do all this for 7 days. Fluids Rest humidifier Follow up in about 3 months (around 07/08/2023). documented in this encounter [facility] 09-07-2020 History of Present illness Narrative Explained Holter monitor and diary. documented in this encounter [employer] [facility]: 09-06-2020 History of Present illness Narrative Instructed patient on the benefit and protocol of a Cardiolite/Lexiscan stress test. documented in this encounter [employer] [facility]: Evaluation note Diagnosis Chest pain, unspecified type Exertional dyspnea Other dyspnea and respiratory abnormality documented in this encounter [employer] Phone: evaluation note* Diagnosis Chest pain, unspecified type Exertional dyspnea Other dyspnea and respiratory abnormality Palpitations documented in this encounter [employer] Phone: evaluation note* Diagnosis Chest pain, unspecified type Exertional dyspnea Other dyspnea and respiratory abnormality Palpitations documented in this encounter [employer] Phone: evaluation note* Diagnosis Chest pain, unspecified type Exertional dyspnea Other dyspnea and respiratory abnormality Palpitations documented in this encounter [employer] Phone: evaluation note* Diagnosis Abnormality of right breast on screening mammography documented in this encounter [employer] [facility]: evaluation note* Diagnosis Abnormal mammogram Abnormal mammogram, unspecified documented in this encounter [employer] Phone: evalvdvfdu note* Diagnosis Shortness of breath [id number] condition documented in this encounter [employer] [facility]: evaluation note* Diagnosis Bronchitis- Primary Bronchitis, not specified as acute or chronic documented in this encounter [facility] Reason for Referral Status Reason Specialty Diagnoses / Procedures Referred By Contact Referred To Contact Pending Review Radiology Diagnoses Abnormal mammogram Procedures US BREAST COMPLETE RIGHT [facility] [place] [address] [place] [address] Status Reason Specialty Diagnoses / Procedures Referred By Contact Referred To Contact Authorized Radiology Diagnoses Abnormal mammogram Procedures JENNIFER DIGITAL DIAGNOSTIC W OR WO CAD RIGHT [facility] [place] [address] [place], [place] [id number] Status Reason Specialty Diagnoses / Procedures Referred By Contact Referred To Contact Authorized Radiology Diagnoses Breast cancer screening Procedures JENNIFER DIGITAL SCREEN W OR WO CAD BILATERAL [facility] [place] [address] [place], [place] [phone] Status Reason Specialty Diagnoses / Procedures Referred By Contact Referred To Contact Closed Cardiology / Echocardiography Diagnoses Chest pain, unspecified type Exertional dyspnea Palpitations Procedures ECHO Complete 2D W Doppler W Color Jevon Yepez, DO [address] [place] [id number] [facility] Echo [address] [place] [address] Status Reason Specialty Diagnoses / Procedures Referred By Contact Referred To Contact Authorized Radiology / Stress Lab Diagnoses Chest pain, unspecified type Exertional dyspnea Palpitations Procedures NM MYOCARDIAL SPECT REST EXERCISE OR RX Jevon Yepez, DO [address] [place] [address] [facility] Stress Lab [address] [place] [address] Status Reason Specialty Diagnoses / Procedures Referre d By Contact Referred To Contact Closed EKG Diagnoses Chest pain, unspecified type Exertional dyspnea Palpitations Procedures Holter Monitor 48 Hour Jevon Yepez, DO [address] [place] [id number] [facility] Ekg [address] [place] [address] Specialty Diagnoses / Procedures Referred By Gabby houser Referred To Contact Radiology Diagnoses Abnormality of right breast on screening mammography Procedures JENNIFER ARTURO DIGITAL DIAGNOSTIC UNILATERAL RIGHT Jevon Yepez, DO [address] [place] [id number] Referral ID Status Reason Start Date Expiration Date Visits Re quested Visits Authorized [id number] Closed 09/08/2021 09/08/2022 1 1 Specialty Diagnoses / Procedures Referred By Gabby houser Referred To Contact Radiology Diagnoses Shortness of breath [id number] CHEST W CONTRAST [place] Sifuentes [address] [place] [id number] Referral ID Status Reason Start Date Expiration Date Visits Requested Visits Authorized [id number] No Precertification Needed 12/23/19 22 12/22/2022 1 1 Assessments Diagnosis Abnormal mammogram Abnormal mammogram, unspecified Diagnosis Breast cancer screening Breast screening, unspecified Advance Directives No Advanced Directives Records FoundDocuments on File Type Date Recorded Patient Paperhanger And Painter Expl anation Advance Directives and Living Will Power of International Coordinator Documents on File Type Date Recorded Patient Paperhanger And Painter Expl anation Advance Directives and Living Will Power of International Coordinator Documents on File Type Date Recorded Patient Paperhanger And Painter Expl anation ACP-Advance Directive ACP-Power of International Coordinator Documents on File Type Date Recorded Patient Paperhanger And Painter Expl anation ACP-Advance Directive ACP-Power of International Coordinator Summary Purpose Family History No Family History Records FoundNo Family History Records FoundNo Family History Records FoundNo Family History Records Found Additional Source Comments Reason for Visit (unrecogniz ed section and content) Status Reason Specialty Diagnoses / Procedures Referre d By Contact Referred To Contact Open Radiology Diagnoses Other abnormal and inconclusive findings on diagnostic imaging of breast Procedures HC US BREAST COMP Fruth, [place] [address] [place], [place] [phone] [facility] Ultrasound [address] [place] [address] Status Reason Specialty Diagnoses / Procedures Referre d By Contact Referred To Contact Open Radiology Diagnoses Other abnormal and inconclusive findings on diagnostic imaging of breast Procedures HC MAMMO DGX UNILATERAL INCL CAD IF PERF Fruth, [place] [address] [place] [address] [place] [address] Status Reason Specialty Diagnoses / Procedures Referre d By Contact Referred To Contact Open Radiology Diagnoses Encounter for screening mammogram for malignant neoplasm of breast Procedures HC MAMMO SCREENING INCL CAD IF PERF Fruth, [place] [address] [place] [address] [place] [address] Status Reason Specialty Diagnoses / Procedures Referred By Contact Referred To Contact Closed Cardiology / Echocardiography Diagnoses Chest pain, unspecified type Exertional dyspnea Palpitations Procedures ECHO Complete 2D W Doppler W Color Jevon Yepez, DO [address] [place] [phone] [facility] Echo [address] [place] [address] Status Reason Specialty Diagnoses / Procedures Referred By Contact Referred To Contact Authorized Radiology / Stress Lab Diagnoses Chest pain, unspecified type Exertional dyspnea Palpitations Procedures NM MYOCARDIAL SPECT REST EXERCISE OR RX Jevon Yepez, DO [address] [place] [id number] [facility] Stress Lab [address] [place], [place] [phone] Status Reason Specialty Diagnoses / Procedures Referre d By Contact Referred To Contact Closed EKG Diagnoses Chest pain, unspecified type Exertional dyspnea Palpitations Procedures Holter Monitor 48 Hour Jevon Yepez, DO [address] [place] [address] [facility] Ekg [address] [place] [address] Status Reason Specialty Diagnoses / Procedures Referred By Contact Referred To Contact Closed Radiology / Stre ss Lab Diagnoses Chest pain, unspecified type Exertional dyspnea Palpitations Procedures NM MYOCARDIAL SPECT REST EXERCISE OR RX Jeovn Yepez, DO [address] [place] [address] [facility] Stress Lab [address] [place] [address] Specialty Diagnoses / Procedures Referred By Anselmoac t Referred To Contact Radiology Diagnoses Abnormality of right breast on screening mammography Procedures JENNIFER ARTURO DIGITAL DIAGNOSTIC UNILATERAL RIGHT Jevon Yepez, DO [address] [place] [address] Referral ID Status Reason Start Date Expiration Date Visits Re quested Visits Authorized [id number] Closed 09/08/2021 09/08/2022 1 1 Specialty Diagnoses / Procedures Referred By Contac t Referred To Contact Radiology Diagnoses Abnormal mammogram Procedures US BREAST COMPLETE RIGHT Jevon Yepez, DO [address] [place] [address] Referral ID Status Reason Start Date Expiration Date Visits Re quested Visits Authorized [id number] Closed 09/13/2021 09/13/2022 1 1 Specialty Diagnoses / Procedures Referred By Contac t Referred To Contact Radiology Diagnoses Shortness of breath [id number] CHEST W CONTRAST [place] Sifuentes [address] [place] [address] Referral ID Status Reason Start Date Expiration Date Visits Requested Visits Authorized [id number] No Precertification Needed 12/23/19 22 12/22/2022 1 1 Reason Comments URI INFORMATION SOURCE (unrecogn ized section and content) DATE CREATED AUTHOR 10/01/2019 [facility] DATE CREATED AUTHOR AUTHOR'S ORGANIZ ATION 02/22/2022 [facility] DATE CREATED AUTHOR AUTHOR'S ORGANIZ ATION 03/12/2023 [facility] DATE CREATED AUTHOR AUTHOR'S ORGANIZ ATION 12/10/2023 [facility] Care Teams (unrecognized sec tion and content) Massotherapist Relationship Specialty Start Date End Date Jevon Yepez, DO [address] [place] [address] PCP - General Family Medicine 08/23/20 Massotherapist Relationship Specialty Start Date End Date Jevon Yepez, DO [address] [place] [address] PCP - General Family Medicine 08/23/20 Massotherapist Relationship Specialty Start Date End Date Jevon Yepez, DO [address] [place] [address] PCP - General Family Medicine 08/23/20 Massotherapist Relationship Specialty Start Date End Date Jevon Yepez, DO [address] [place] [address] PCP - General Family Medicine 08/23/20 Massotherapist Relationship Specialty Start Date End Date Jevon Yepez, DO [address] [place] [address] PCP - General Family Medicine 08/23/20 Massotherapist Relationship Specialty Start Date End Date Jevon Yepez DO [address] [place] [address] PCP - General Family Medicine 08/23/20 Massotherapist Relationship Specialty Start Date End Date Jevon Yepez DO [address] [place] [address] PCP - General Family Medicine 07/25/22 Karol Coleman, MICRO PALEONTOLOGIST [address] [place] [address] Nurse Practitioner Family Medicine 07/25/22 Massotherapist Relationship Specialty Start Date End Date Jevon Yepez DO [address] [place], [place] [phone] PCP - General Family Medicine 07/25/22 Karol Coleman NP [address] [place], [place] [phone] Nurse Practitioner Family Medicine 07/25/22 FOR RECORDS PERTAINING TO PATIENTS WHO ARE OR HAVE BEEN ENROLLED IN A CHEMICAL DEPENDENCY/SUBSTANCEABUSE PROGRAM, SOME INFORMATION MAY BE OMITTED. This clinical summary was aggregated from multiple sources. Caution should be exercised in using it in the provision of clinical care. This summary normalizes information from multiple sources, and as a consequence, information in this document may materially change the coding, format and clinical context of patient data. In addition, data may be omitted in some cases. CLINICAL DECISIONS SHOULD BE BASED ON THE PRIMARY CLINICAL RECORDS. [facility] [employer] [facility] provides no warranty or guarantee of the accuracy or completeness of information in this document.
[2023-12-11 06:45] VITALS: BP 131/81; PULSE 68; TEMP 36.3; O2SAT 96; BMI 32.4
[2023-12-11] MEDS: 0.9 % SODIUM CHLORIDE 500 ML 50 ML IV (07:05)
[2023-12-11 07:50] VITALS: BP 102/65; PULSE 60; TEMP 36.1; O2SAT 96
--- NOTE | 2023-12-11 07:59 | W.PM.PROCNOT ---
Date of procedure: 12/11/23 Pre-op diagnosis: diagnositc colonoscopy for change in stool caliber Post-op diagnosis: other (no gross abnormalities, tortuous sigmoid ) Procedure: Previous colonoscopy: 2013 procedure: diagnostic colonoscopy The patient was given IV conscious sedation.? The patient's SPO2 remained above 90% throughout the procedure. The colonoscope was inserted per rectum and advanced under direct vision to the cecum without difficulty.? The prep was good.? Findings: Terminal ileum os: normal Cecum/Ascending colon: normal Transverse colon: normal Descending/Sigmoid colon: normal , tortuous sigmoid Rectum/Anus: examined in normal and retroflexed positions and was normal Withdrawal Time was (minutes): 10 The colon was decompressed and the scope was removed.? The patient tolerated the procedure well. Recommendations/Plan: 1.? Lifestyle and dietary modifications as discussed 2.? F/U in 10 years as needed 3.? Discussed with the family Anesthesia: MAC Surgeon: Dhiraj Jaramillo Estimated blood loss (mL): 0 Pathology: none sent Condition: stable Disposition: PACU
[2023-12-11 08:05] VITALS: BP 121/64; PULSE 64; O2SAT 96
[2023-12-11 08:20] VITALS: BP 125/72; PULSE 60; O2SAT 97
== END 2023-12-11 08:20 | disposition home or self-care (01) ==
PROVIDERS: PCP Nurse Practitioner; Visit Provider Surgery
PROC: (CPT 811; principal; 2023-12-11 07:30)
DX: R19.4 Change in bowel habit (principal); K63.89 Other specified diseases of intestine; Z86.0100 Personal history of colon polyps, unspecified; Z85.820 Personal history of malignant melanoma of skin; Z90.49 Acquired absence of other specified parts of digestive tract; E78.5 Hyperlipidemia, unspecified; E03.9 Hypothyroidism, unspecified
CPT/HCPCS: 45378; J2250; J2704; J3010

== ENCOUNTER 2024-05-08 13:56 | Outpatient (RCR) | payer BC, SELFPAY | END 2024-05-23 08:39 | disposition home or self-care (01) | LOC: PT 13:56 | PROVIDERS: PCP Nurse Practitioner; Visit Provider Nurse Practitioner | DX: M54.31 Sciatica, right side (principal) | CPT/HCPCS: 20561; 97110; 97161 ==